=== PATIENT | female | born 1960 | race Caucasian/White ===

== ENCOUNTER → 2018-03-16 10:43 | Outpatient (CLI) | payer OTHER, SELFPAY | PROVIDERS: Family Provider Family Medicine; PCP Family Medicine; Visit Provider Family Medicine | DX: Z00.00 Encounter for general adult medical examination without abnormal findings (principal) ==

== ENCOUNTER → 2018-03-19 08:55 | Outpatient (CLI) | payer OTHER, SELFPAY ==
[2018-03-19 12:38] LABS: AST(SGOT) 16 U/L (15-37); Alanine Aminotransfer ALT/SGPT 17 U/L (13-56); Albumin, Serum 3.6 g/dL (3.2-5.0); Alkaline Phosphatase 89 U/L (45-117); Anion Gap 8 (5-15); BUN 14 mg/dL (7-18); BUN/Creat Ratio 16.3 RATIO (10-20); Calcium,Total 8.2 mg/dL (8.5-10.1); Chloride 109 mmol/L (98-107); Cholesterol 235 mg/dL (200); Creatinine, Serum 0.86 mg/dL (0.55-1.02); EST Glomerular Filtration Rate 73 mL/min (>60); Est Glom Filt Rate - Afr Amer 88 mL/min (>60); Free T3 2.1 pg/mL (2.18-3.98); Globulin 3.6 g/dL (2.2-4.2); Glucose 84 mg/dL (74-106); High Density Lipoprotein 57 mg/dL; Potassium 4.1 mmol/L (3.5-5.1); Protein, Total 7.2 g/dL (6.4-8.2); Sodium Level 141 mmol/L (136-145); T4 Free Direct 0.89 ng/dL (0.76-1.46); Thyroid Stim Hormone (TSH) 2.01 uIU/mL (0.358-3.74); Triglycerides 252 mg/dL; Very Low Density Lipoprotein 50 mg/dL (5-40)
== END ==
PROVIDERS: Family Provider Family Medicine; PCP Family Medicine; Visit Provider Family Medicine
DX: E03.9 Hypothyroidism, unspecified (principal); F32.9 Major depressive disorder, single episode, unspecified
CPT/HCPCS: 36415; 80053; 80061; 84439; 84443; 84481

== ENCOUNTER → 2018-09-28 10:02 | Outpatient (CLI) | payer OTHER, SELFPAY ==
[2018-10-02 13:28] LABS: HPV HC, High Risk Negative (Negative)
== END ==
PROVIDERS: Family Provider Family Medicine; PCP Family Medicine; Visit Provider Family Medicine
DX: Z12.4 Encounter for screening for malignant neoplasm of cervix (principal)
CPT/HCPCS: 87624; 88175; G0145

== ENCOUNTER → 2018-10-13 10:20 | Outpatient (CLI) | payer OTHER, SELFPAY ==
[2016-11-06 10:24] VITALS: BMI 27.8
--- NOTE | 2018-10-13 10:24 | BI_ITS ---
MAMMOGRAPHY - UNILATERAL DIAGNOSTIC: LEFT BREAST REASON FOR EXAM: Female, 57 years old. Prior right mastectomy. Prior left stereotactic breast biopsy. PERTINENT HISTORY: Personal history of breast cancer. Grandmother with breast cancer. On with breast cancer. TECHNIQUE: Digital unilateral breast missy (3D mammographic acquisition) in the CC and MLO projections. 2-D mediolateral oblique (MLO) and craniocaudad (CC) views of both breasts were obtained. CAD: Full Field Digital Mammography with Computer Added Detection was performed. COMPARISON: Comparison is made with prior study dated February 21, 2017 and November 01, 2010. FINDINGS: Breast Composition: The breasts are heterogeneously dense, which may obscure small masses. There are no dominant masses or suspicious calcifications. 2 tissue markers are seen in the retroareolar region of the left breast. These are unchanged. Stable appearance of the small left axillary lymph nodes. No other significant abnormalities are identified. There has been no significant change since the prior study. BI/UNILAT LT SCRN W/CAD IMPRESSION: Stable unilateral diagnostic mammogram. One year follow-up mammogram recommended. (A) ASSESSMENT CATEGORY: BIRADS Category 2: Benign. A letter regarding these results will be sent to the patient by the facility within 30 days. Approximately 10% of breast cancers are not detected by mammography. A normal mammogram should not delay biopsy of a clinically suspicious abnormality. Electronically Signed: Nestor Allison MD at 9:28 EST Tel [phone], Service support ,
== END ==
PROVIDERS: Family Provider Family Medicine; PCP Family Medicine; Referring Provider Family Medicine; Visit Provider Family Medicine
DX: Z12.31 Encounter for screening mammogram for malignant neoplasm of breast (principal); C50.919 Malignant neoplasm of unspecified site of unspecified female breast
CPT/HCPCS: 77061; 77063; 77067; G0279

== ENCOUNTER 2019-05-18 18:41 | Emergency (ER) | payer OTHER, SELFPAY ==
[2019-05-18 18:42] VITALS: BP 117/66; PULSE 70; RESP 16; TEMP 36.7; O2SAT 96; BMI 28.1
--- NOTE | 2019-05-18 19:03 | RAD_ITS ---
STUDY: X-RAY - RIGHT FOOT CLINICAL: Female, 58 years old. Trauma TECHNIQUE: 3 view(s) of the foot. COMPARISON: None. FINDINGS: There is no acute fracture or dislocation. There is mild hallux valgus with moderate degenerative change in the first metatarsal head. Mineralization is normal. There is chronic insertional enthesopathy of the plantar fascia. Soft tissues are intact. RAD/Foot min 3 Views IMPRESSION: 1. No acute findings of trauma. 2. Hallux valgus. Electronically Signed: Vidya Ahumada, at 19:46 EDT Tel , Service support ,
--- NOTE | 2019-05-18 19:03 | RAD_ITS ---
STUDY: X-RAY - RIGHT WRIST REASON FOR EXAM: Female, 58 years old. Trauma TECHNIQUE: 3 view(s) of the wrist were obtained. COMPARISON: None. FINDINGS: Normal visualized distal radius and ulna. Normal radiocarpal articulation. Normal distal radioulnar articulation. Normal carpal bones. Normal carpal articulations. Normal carpometacarpal articulation of the thumb. Normal second through fifth carpometacarpal articulations. Normal visualized metacarpal bones. The soft tissue structures are unremarkable. RAD/Wrist min 3 Views IMPRESSION: Normal x-ray examination of the wrist. Electronically Signed: Vidya Ahumada, at 19:42 EDT Tel , Service support ,
--- NOTE | 2019-05-18 19:11 | ED.VISSUMM ---
- ER Visit Summary Date of Service: 05/18/19 Chief Complaint: Right wrist pain, right foot pain History of Present Illness: The patient is a 58 F who was on a stepladder when it collapsed beneath her and she fell. She states that she twisted her right foot and landed with her right arm outstretched. No head trauma or LOC. She took nothing for it at home. She did apply ice to the wrist and hand. Denies any previous injuries or surgeries to these areas. The pain is worse with movement. Physical Examination: Right wrist exam reveals full range of motion with minimal pain. There is no specific tenderness. No deformity or swelling. No paresthesias. Right foot is tender in the proximal area near the insertion of the ATFL. There is no malleolar tenderness. No calcaneal tenderness. There is no fifth metatarsal tenderness. He does have good range of motion with minimal pain. Minimal swelling also noted after icing. Test Results: X-rays of the wrist and foot are negative Emergency Department Course and Treatment: Patient has negative x-rays. She will be given crutches. She will ice and elevate and use ibuprofen at home. She will follow-up with her PCP Treatment Plan: [] Disposition: Discharge Impression: Right foot sprain, right wrist sprain This note was generated with Doc[employer] dictation software. It may contain incorrect words, spelling, and punctuation that were not noted in review of the chart prior to signing ED Disposition - Plan for ED Patient: Referrals: Kristal Fregoso MD [Primary Care Provider] -
--- NOTE | 2019-05-18 19:57 | ED.DEP ---
ED Disposition - Plan for ED Patient: Disposition: Home or Assisted Living Instructions: Sprain Foot Referrals: Kristal Fregoso MD [Primary Care Provider] -
[2019-05-18 20:26] VITALS: RESP 16
== END 2019-05-18 20:26 | disposition home or self-care (01) ==
LOC: ED 20:14
PROVIDERS: Emergency Provider Emergency Medicine; Family Provider Family Medicine; PCP Family Medicine
DX: S63.501A Unspecified sprain of right wrist, initial encounter (principal); S93.601A Unspecified sprain of right foot, initial encounter; W11.XXXA Fall on and from ladder, initial encounter; Y93.9 Activity, unspecified; Y92.9 Unspecified place or not applicable; Y99.9 Unspecified external cause status; E03.9 Hypothyroidism, unspecified; F32.9 Major depressive disorder, single episode, unspecified; Z79.899 Other long term (current) drug therapy
CPT/HCPCS: 73110; 73630; 99284

== ENCOUNTER → 2019-05-21 08:21 | Outpatient (CLI) | payer OTHER, SELFPAY ==
[2019-05-18 18:42] VITALS: BMI 28.1
[2019-05-21 12:32] LABS: Absolute Lymphocyte Count 1.84 X10^3/ul (0.83-4.51); Absolute Neutrophil Count 2.6 X10^3/uL (2.0-7.7); Basophil# 0.02 X10^3/uL; Basophil% 0.4 % (0-1); Eosinophils% 3.9 % (0-5); Hematocrit 41.8 % (37-47); Hemoglobin 13.7 g/dl (12.0-15.0); Lymphocyte # 1.84 X10^3/ul (4.0); Lymphocyte % 36.2 % (19-41); Mean Corp Hgb Conc 32.8 g/gl (32-36); Mean Corpuscular Hgb 28.2 pg (27.0-32.0); Mean Platelet Vol. 10.1 fl (6.2-12.0); Monocyte# 0.43 X10^3/uL; Monocyte% 8.5 % (0-10); Neutrophil # 2.59 X10^3/uL (2.7-7.7); Platelet Count 308 K/mm3 (150-450); RBC Distribution Width CV 13.2 % (11.6-14.6); RBC Distribution Width SD 40.9 fl (35.1-43.9); Red Blood Count 4.86 M/mm3 (4.2-5.4); White Blood Count 5.1 K/mm3 (4.4-11.0)
[2019-05-21 12:41] LABS: POSITIVE COUNT NO; POSITIVE DIFFERENTIAL NO; POSITIVE MORPHOLOGY NO
[2019-05-21 13:05] LABS: AST(SGOT) 19 U/L (15-37); Alanine Aminotransfer ALT/SGPT 21 U/L (13-56); Albumin, Serum 3.9 g/dL (3.2-5.0); Alkaline Phosphatase 106 U/L (45-117); Anion Gap 6 (5-15); BUN 14 mg/dL (7-18); BUN/Creat Ratio 14.4 RATIO (10-20); Chloride 107 mmol/L (98-107); Creatinine, Serum 0.97 mg/dL (0.55-1.02); EST Glomerular Filtration Rate 63 mL/min (>60); Est Glom Filt Rate - Afr Amer 76 mL/min (>60); Globulin 3.8 g/dL (2.2-4.2); Glucose 84 mg/dL (74-106); Protein, Total 7.7 g/dL (6.4-8.2); Sodium Level 139 mmol/L (136-145); Thyroid Stim Hormone (TSH) 2.52 uIU/mL (0.358-3.74)
[2019-05-21 13:55] LABS: Cholesterol 220 mg/dL (200); High Density Lipoprotein 76 mg/dL; Triglycerides 125 mg/dL; Very Low Density Lipoprotein 25 mg/dL (5-40)
== END ==
PROVIDERS: Family Provider Family Medicine; PCP Family Medicine; Visit Provider Family Medicine
DX: E03.9 Hypothyroidism, unspecified (principal); E78.5 Hyperlipidemia, unspecified; F32.9 Major depressive disorder, single episode, unspecified
CPT/HCPCS: 36415; 80053; 80061; 83690; 84443; 85025

== ENCOUNTER → 2019-09-07 14:30 | Outpatient (CLI) | payer OTHER, SELFPAY ==
[2019-09-07 09:16] VITALS: BMI 28.1
== END ==
PROVIDERS: Family Provider Family Medicine; PCP Family Medicine; Visit Provider Physician Assistant Medical
DX: J02.9 Acute pharyngitis, unspecified (principal)
CPT/HCPCS: 87070

== ENCOUNTER → 2019-10-21 15:56 | Outpatient (CLI) | payer OTHER, SELFPAY ==
[2019-09-21 09:56] VITALS: BMI 28.1
--- NOTE | 2019-10-21 15:58 | BI_ITS ---
MAMMOGRAPHY - UNILATERAL SCREENING: LEFT BREAST REASON FOR EXAM: Female, 58 years old. Routine annual screening examination (unilateral). PERTINENT HISTORY: Right mastectomy in 2005. Left breast biopsies in 2009. History of breast cancer in grandmother. TECHNIQUE: TECHNIQUE: Digital examination. Mediolateral oblique (MLO) and craniocaudad (CC) views of both breasts were obtained. CAD: CAD was performed on this study. COMPARISON: October 13, 2018 FINDINGS: Breast Composition: There are scattered areas of fibroglandular density. 2 tissue clip markers in the left breast unchanged. Stable benign calcifications. There are no dominant masses or suspicious calcifications. No other significant abnormalities are identified. BI/SCREEN MAMM (CAD) W/MIRANDA UNI L IMPRESSION: Stable bilateral screening mammogram. ASSESSMENT CATEGORY: BIRADS Category 2: Benign. A letter regarding these results will be sent to the patient by the facility within 30 days. FOLLOW UP RECOMMENDATION: Yearly follow up mammogram recommended. (A) Approximately 10% of breast cancers are not detected by mammography. A normal mammogram should not delay biopsy of a clinically suspicious abnormality. [id number] Electronically Signed: Panda Eddy MD at 15:02 EST , Service support ,
== END ==
PROVIDERS: Family Provider Family Medicine; PCP Family Medicine; Referring Provider Family Medicine; Visit Provider Family Medicine
DX: Z12.31 Encounter for screening mammogram for malignant neoplasm of breast (principal); C50.919 Malignant neoplasm of unspecified site of unspecified female breast; Z90.11 Acquired absence of right breast and nipple; Z80.3 Family history of malignant neoplasm of breast
CPT/HCPCS: 77063; 77067

== ENCOUNTER → 2020-03-30 14:40 | Outpatient (CLI) | payer OTHER, SELFPAY ==
[2019-09-21 09:56] VITALS: BMI 28.1
[2020-03-30 18:11] LABS: Free T3 2.2 pg/mL (2.18-3.98); T4 Free Direct 1.03 ng/dL (0.76-1.46); Thyroid Stim Hormone (TSH) 1.56 uIU/mL (0.358-3.74)
== END ==
PROVIDERS: PCP Family Medicine; Referring Provider Family Medicine; Visit Provider Family Medicine
DX: E03.9 Hypothyroidism, unspecified (principal)
CPT/HCPCS: 36415; 84439; 84443; 84481

== ENCOUNTER → 2020-06-19 20:28 | Outpatient (CLI) | payer OTHER, SELFPAY ==
[2019-09-21 09:56] VITALS: BMI 28.1
== END ==
PROVIDERS: PCP Family Medicine; Visit Provider Family Medicine
DX: R06.83 Snoring (principal)
CPT/HCPCS: 95810

== ENCOUNTER → 2020-08-10 21:51 | Outpatient (CLI) | payer OTHER, SELFPAY ==
[2019-09-21 09:56] VITALS: BMI 28.1
== END ==
PROVIDERS: PCP Family Medicine; Referring Provider Family Medicine; Visit Provider Family Medicine
DX: G47.33 Obstructive sleep apnea (adult) (pediatric) (principal)
CPT/HCPCS: 95811

== ENCOUNTER → 2020-11-05 16:30 | Outpatient (CLI) | payer OTHER, SELFPAY ==
[2019-09-21 09:56] VITALS: BMI 28.1
== END ==
PROVIDERS: PCP Family Medicine; Referring Provider Family Medicine; Visit Provider Family Medicine
DX: Z03.818 Encounter for observation for suspected exposure to other biological agents ruled out (principal)
CPT/HCPCS: 87635; C9803; U0003

== ENCOUNTER → 2020-11-18 14:10 | Outpatient (CLI) | payer OTHER, SELFPAY ==
[2019-09-21 09:56] VITALS: BMI 28.1
[2020-11-11 11:27] VITALS: BMI 30.5
--- NOTE | 2020-11-18 14:11 | BI_ITS ---
MAMMOGRAPHY - UNILATERAL SCREENING: LEFT BREAST REASON FOR EXAM: Female, 60 years old. Routine annual screening examination (unilateral). PERTINENT HISTORY: Personal history of breast cancer. Grandmother with breast cancer. Prior right mastectomy. TECHNIQUE: Digital unilateral breast miranda (3D mammographic acquisition) in the CC and MLO projections. 2-D mediolateral oblique (MLO) and craniocaudad (CC) views of both breasts were obtained. CAD: Full Field Digital Mammography with Computer Added Detection was performed. COMPARISON: Comparison is made with prior mammogram dated 10/21/2019 and 10/13/2018. FINDINGS: Breast Composition: The breasts are heterogeneously dense, which may obscure small masses. There are no dominant masses or suspicious calcifications. 2 tissue markers are once again seen in the retroareolar region of the left breast. No other significant abnormalities are identified. There has been no significant change since the prior study. BI/SCREEN MAMM (CAD) W/MIRANDA UNI L IMPRESSION: Stable unilateral screening mammogram. Yearly follow-up mammogram recommended. (A) ASSESSMENT CATEGORY: BIRADS Category 2: Benign. A letter regarding these results will be sent to the patient by the facility within 30 days. Approximately 10% of breast cancers are not detected by mammography. A normal mammogram should not delay biopsy of a clinically suspicious abnormality. [id number] Electronically Signed: Nestor Allison, at 15:05 EST , Service support ,
== END ==
PROVIDERS: PCP Family Medicine; Referring Provider Family Medicine; Visit Provider Family Medicine
DX: Z12.31 Encounter for screening mammogram for malignant neoplasm of breast (principal)
CPT/HCPCS: 77063; 77067

== ENCOUNTER → 2020-12-25 07:21 | Outpatient (CLI) | payer OTHER, SELFPAY ==
[2020-11-11 11:27] VITALS: BMI 30.5
[2020-12-25 09:54] LABS: Absolute Lymphocyte Count 1.67 X10^3/uL (0.83-4.51); Absolute Neutrophil Count 2.8 X10^3/uL (2.0-7.7); Basophil# 0.05 X10^3/uL; Eosinophil# 0.15 X10^3/uL; Eosinophils% 2.9 % (0-5); Hematocrit 41.3 % (37-47); Hemoglobin 13.3 g/dL (12.0-15.0); Lymphocyte # 1.67 X10^3/ul (4.0); Lymphocyte % 32.1 % (19-41); Mean Corp Hgb Conc 32.2 g/dL (32-36); Mean Corpuscular Hgb 28.1 pg (27.0-32.0); Mean Corpuscular Volume 87.3 fL (81-99); Mean Platelet Vol. 10.1 fl (6.2-12.0); Monocyte% 9.6 % (0-10); NRBC Flagged by Analyzer 0 % (0-5); Neutrophil # 2.83 X10^3/uL (2.7-7.7); Neutrophil % 54.2 % (47-70); Platelet Count 305 K/mm3 (150-450); RBC Distribution Width CV 12.5 % (11.6-14.6); RBC Distribution Width SD 40.2 fl (35.1-43.9); Red Blood Count 4.73 M/mm3 (4.2-5.4); White Blood Count 5.2 K/mm3 (4.4-11.0)
[2020-12-25 10:26] LABS: ALB/GLOB Ratio 1.2 RATIO (0.9-2.4); AST(SGOT) 10 U/L (15-37); Alanine Aminotransfer ALT/SGPT 19 U/L (13-56); Albumin, Serum 4.1 g/dL (3.2-5.0); Alkaline Phosphatase 87 U/L (45-117); Anion Gap 7 (5-15); BUN 19 mg/dL (7-18); BUN/Creat Ratio 18.3 RATIO (10-20); Calcium,Total 8.9 mg/dL (8.5-10.1); Chloride 109 mmol/L (98-107); Cholesterol 220 mg/dL (200); Creatinine, Serum 1.04 mg/dL (0.55-1.02); EST Glomerular Filtration Rate 58 mL/min (>60); Est Glom Filt Rate - Afr Amer 70 mL/min (>60); Globulin 3.5 g/dL (2.2-4.2); Glucose 96 mg/dL (74-106); High Density Lipoprotein 77 mg/dL; Potassium 3.9 mmol/L (3.5-5.1); Protein, Total 7.6 g/dL (6.4-8.2); Sodium Level 140 mmol/L (136-145); Triglycerides 102 mg/dL; Very Low Density Lipoprotein 20 mg/dL (5-40)
[2020-12-25 10:28] LABS: Vitamin D,25 Hydroxy 35.9 ng/mL
== END ==
PROVIDERS: PCP Family Medicine; Referring Provider Family Medicine; Visit Provider Family Medicine
DX: E78.5 Hyperlipidemia, unspecified (principal); E03.9 Hypothyroidism, unspecified; F32.9 Major depressive disorder, single episode, unspecified; M85.80 Other specified disorders of bone density and structure, unspecified site
CPT/HCPCS: 36415; 80053; 80061; 82306; 85025

== ENCOUNTER → 2021-01-28 15:41 | Outpatient (CLI) | payer OTHER, SELFPAY ==
[2020-11-11 11:27] VITALS: BMI 30.5
--- NOTE | 2021-01-28 15:55 | BD_ITS ---
STUDY: DUAL ENERGY X-RAY ABSORPTIOMETRY / DXA REASON FOR EXAM: Female, 60 years old. [id number] the patient is postmenopausal. Loss of height. TECHNIQUE: Bone Mineral Density (BMD) measurements of lumbar spine and bilateral hips were obtained. COMPARISON: None. FINDINGS: Lumbar Spine (L1-L4): g/cm2 (1.083) / T-score (-1.0) / Z-score (0.2) Findings are suggestive of normal bone density with a low fracture risk. Left Femur Total: g/cm2 (1.015) / T-score (0.1) / Z-score (0.9) Left Femoral Neck: g/cm2 (0.944) / T-score (-0.7) / Z-score (0.5) Right Femur Total: g/cm2 (1.016) / T-score (0.1) / Z-score (0.9) Right Femoral Neck: g/cm2 (0.962) / T-score (-0.5) / Z-score (0.7) BD/Dexa Bone Density Study IMPRESSION: The patient is considered normal as outlined below according to World Frantz Organization (WHO) criteria with a low fracture risk. Reference Information: The T-score is the number of standard deviations above or below the standard which is normal for young adults at their peak bone mineral density. The World Health Organization (WHO) interprets the T-scores as follows: Above -1 Normal bone density Between -1 and -2.5 Osteopenia Equal to / or below -2.5 Osteoporosis As a practical clinical guideline, osteopenia may be graded as follows: Mild -1 through -1.5 Moderate -1.6 through -2.0 Severe -2.1 through -2.4 The Z-score is the number of standard deviations above or below age-matched controls. A Z-score of less than -1.5 would be considered abnormal. References: 1. NIH Osteoporosis and Related Bone Diseases www osteo.org 2. International Society for Clinical Densitometry www iscd.org 3. National Osteoporosis Foundation www nof.org Electronically Signed: Nestor Allison MD at 9:34 EST , Service support ,
== END ==
PROVIDERS: PCP Family Medicine; Referring Provider Family Medicine; Visit Provider Family Medicine
DX: Z13.820 Encounter for screening for osteoporosis (principal); M85.80 Other specified disorders of bone density and structure, unspecified site; Z78.0 Asymptomatic menopausal state
CPT/HCPCS: 77080

== ENCOUNTER → 2021-04-28 14:30 | Outpatient (CLI) | payer OTHER, SELFPAY ==
[2021-03-20 12:49] VITALS: BMI 28.9
[2021-04-28 18:12] LABS: Anion Gap 7 (5-15); BUN 19 mg/dL (7-18); BUN/Creat Ratio 19.4 RATIO (10-20); Calcium,Total 9.1 mg/dL (8.5-10.1); Chloride 106 mmol/L (98-107); Creatinine, Serum 0.98 mg/dL (0.55-1.02); EST Glomerular Filtration Rate 62 mL/min (>60); Est Glom Filt Rate - Afr Amer 75 mL/min (>60); Glucose 105 mg/dL (74-106); Potassium 3.6 mmol/L (3.5-5.1); Sodium Level 140 mmol/L (136-145); Thyroid Stim Hormone (TSH) 1.62 uIU/mL (0.358-3.74)
== END ==
PROVIDERS: PCP Family Medicine; Referring Provider Family Medicine; Visit Provider Family Medicine
DX: E03.9 Hypothyroidism, unspecified (principal); Z51.81 Encounter for therapeutic drug level monitoring
CPT/HCPCS: 36415; 80048; 84443

== ENCOUNTER → 2021-11-23 08:27 | Outpatient (CLI) | payer OTHER, SELFPAY ==
[2021-11-23 09:50] LABS: Absolute Lymphocyte Count 1.82 X10^3/uL (0.83-4.51); Absolute Neutrophil Count 3.1 X10^3/uL (2.0-7.7); Basophil# 0.04 X10^3/uL; Basophil% 0.7 % (0-1); Eosinophil# 0.16 X10^3/uL; Eosinophils% 2.8 % (0-5); Hemoglobin 13.6 g/dL (12.0-15.0); Lymphocyte # 1.82 X10^3/ul (0.83-4.51); Lymphocyte % 31.8 % (19-41); Mean Corp Hgb Conc 32.4 g/dL (32-36); Mean Corpuscular Hgb 27.9 pg (27.0-32.0); Mean Corpuscular Volume 86.1 fL (81-99); Mean Platelet Vol. 9.6 fl (6.2-12.0); Monocyte# 0.56 X10^3/uL; Monocyte% 9.8 % (0-10); NRBC Flagged by Analyzer 0 % (0-5); Neutrophil # 3.14 X10^3/uL (2.7-7.7); Neutrophil % 54.7 % (47-70); Platelet Count 302 K/mm3 (150-450); RBC Distribution Width CV 12.7 % (11.6-14.6); Red Blood Count 4.88 M/mm3 (4.2-5.4); White Blood Count 5.7 K/mm3 (4.4-11.0)
[2021-11-23 10:10] LABS: AST(SGOT) 16 U/L (15-37); Alanine Aminotransfer ALT/SGPT 19 U/L (13-56); Albumin, Serum 3.8 g/dL (3.2-5.0); Alkaline Phosphatase 93 U/L (45-117); Anion Gap 8 (5-15); BUN 14 mg/dL (7-18); BUN/Creat Ratio 14.8 RATIO (10-20); Calcium,Total 8.9 mg/dL (8.5-10.1); Chloride 105 mmol/L (98-107); Cholesterol 211 mg/dL (200); Creatinine, Serum 0.95 mg/dL (0.55-1.02); EST Glomerular Filtration Rate 64 mL/min (>60); Est Glom Filt Rate - Afr Amer 78 mL/min (>60); Globulin 3.9 g/dL (2.2-4.2); Glucose 98 mg/dL (74-106); High Density Lipoprotein 64 mg/dL; Potassium 3.9 mmol/L (3.5-5.1); Protein, Total 7.7 g/dL (6.4-8.2); Sodium Level 139 mmol/L (136-145); Thyroid Stim Hormone (TSH) 3.13 uIU/mL (0.358-3.74); Triglycerides 167 mg/dL; Very Low Density Lipoprotein 33 mg/dL (5-40)
== END ==
PROVIDERS: PCP Family Medicine; Referring Provider Family Medicine; Visit Provider Family Medicine
DX: Z00.00 Encounter for general adult medical examination without abnormal findings (principal); C50.919 Malignant neoplasm of unspecified site of unspecified female breast; E03.9 Hypothyroidism, unspecified
CPT/HCPCS: 36415; 80053; 80061; 84443; 85025

== ENCOUNTER 2021-11-29 15:45 | Outpatient (CLI) | payer OTHER, SELFPAY ==
--- NOTE | 2021-11-29 15:48 | BI_ITS ---
MAMMOGRAPHY - UNILATERAL SCREENING: LEFT BREAST REASON FOR EXAM: Female, 61 years old. Routine annual screening examination (unilateral). PERTINENT HISTORY: Personal history of breast cancer. Prior right mastectomy. Grandmothers with breast cancer. TECHNIQUE: Digital unilateral breast miranda (3D mammographic acquisition) in the CC and MLO projections. 2-D mediolateral oblique (MLO) and craniocaudad (CC) views of both breasts were obtained. CAD: Full Field Digital Mammography with Computer Added Detection was performed. COMPARISON: Comparison is made with prior study dated 08/19/2020 and 10/21/2019. FINDINGS: Breast Composition: The breasts are heterogeneously dense, which may obscure small masses. There are no dominant masses or suspicious calcifications. Once again, 2 tissue clip markers are seen in the retroareolar region of the No other significant abnormalities are identified. There has been no significant change since the prior study. BI/SCREEN MAMM (CAD) W/MIRANDA UNI L IMPRESSION: Stable unilateral screening mammogram. Yearly follow-up mammogram recommended. (A) ASSESSMENT CATEGORY: BIRADS Category 2: Benign. A letter regarding these results will be sent to the patient by the facility within 30 days. Approximately 10% of breast cancers are not detected by mammography. A normal mammogram should not delay biopsy of a clinically suspicious abnormality. [id number] Electronically Signed: Nestor Allison MD at 8:05 EST , Service support ,
== END 2021-11-29 23:59 | disposition short-term general hospital (02) ==
LOC: OPBI 15:46
PROVIDERS: PCP Family Medicine; Referring Provider Family Medicine; Visit Provider Family Medicine
DX: Z12.31 Encounter for screening mammogram for malignant neoplasm of breast (principal)
CPT/HCPCS: 77063; 77067

== ENCOUNTER 2021-12-22 14:31 | Outpatient (CLI) | payer OTHER, SELFPAY ==
--- NOTE | 2021-12-22 14:36 | RAD_ITS ---
EXAM: XR CHEST, 2 VIEWS CLINICAL INDICATION: CHEST PAIN WITH INSPIRATION TECHNIQUE: Frontal and lateral views of the chest. This report was created using [employer] report generation technology. COMPARISON: 11/06/2016. FINDINGS: LUNGS AND PLEURAL SPACES: Unremarkable. No consolidation or edema. No pneumothorax. No effusion. HEART: Unremarkable. Cardiac silhouette not enlarged. MEDIASTINUM: Central airways and mediastinal contour are unremarkable. BONES/JOINTS: Unremarkable. SOFT TISSUES: Postsurgical absence of the right breast. Surgical clips in the right axilla. RAD/Chest PA and Lateral IMPRESSION: No acute findings in the chest and no interval change when compared to 11/06/2016. Electronically Signed: Marvel Oliveira MD at 15:30 EST ,
== END 2021-12-22 23:59 | disposition short-term general hospital (02) ==
LOC: MTRAD 14:32
PROVIDERS: PCP Family Medicine; Referring Provider Family Medicine; Visit Provider Family Medicine
DX: R07.9 Chest pain, unspecified (principal)
CPT/HCPCS: 71046

== ENCOUNTER 2022-01-05 12:42 | Outpatient (CLI) | payer OTHER, SELFPAY ==
--- NOTE | 2022-01-05 12:49 | STE_ITS ---
Reason For Study: Chest Pain; Palpitations Stress Results Protocol: Nabor Protocol Maximum Predicted HR: 160 bpm Target HR: 136 bpm % Maximum Predicted HR: 86 % DurationHeart Rate Stage (mm:ss) (bpm) BP Comment Baseline 51 116/74No Chest Pain Nabor Protocol Stage I 3:00 88 122/68Mild Chest Pain; Lightheaded Nabor Protocol Stage II 3:00 98 130/66Mild Left Sided Chest Pain Nabor Protocol Stage III 3:00 126 136/68Mild Left Sided Chest Pain; Mild Dyspnea Nabor Protocol Stage IV 0:30 137 / Mild Chest Pain; Lightheaded Recovery 71 118/68No Chest Pain; No Lightheadedness Stress Duration: 9:30 mm:ss Maximum Stress HR: 137 bpm METS: 11 Baseline Echocardiogram Findings Stress Echo Wall motion Data Resting WM Intermediate WM Stress WM ECHO/Stress Test Echo w/o Contrast Interpretation Summary Exercise stress echo. 61-year-old lady with a history of chest pain. Stress protocol: Resting KG demonstrates normal sinus rhythm rhythm with a rate of 57 bpm normal intervals are noted resting blood pressure is 116/74 mmHg. The patient exercised according to [facility] Nabor protocol for total duration of 9 minutes and 30 seconds completing 30 seconds into stage IV of the Nabor protocol. The maximum heart rate attained was 139 bpm which was 86% of max impa ct at heart rate the maximum workload was 11.9 metabolic equivalents. At rest nonspecific ST changes were noted with did not meet the criteria for ischemia at peak exercise upsloping ST depression of approximately 1 mm was noted with did not meet the criteria for ischemia. The patient did experien ce mild chest discomfort from beginning through the test of questionable significance. The ak blood pressure was 156/70 mmHg. Good blood pressure response to exercise was noted. Stress echocardiogram. The resting echocardiographic evaluation demonstrated no rmal left ventricular chamber size with an estimated ejection fraction of 55%. At peak exercise there was thickening of all ceron and reduction of left ventricular cavity size peaking of ejection fra ction approximately 70%. No new wall motion abnormalities were noted to suggest ischemia. Conclusion: Exercise stress test with no EKG criteria for ischemia at a high workload. Excellent functional capacity. Normal rest and stress echocardiographic images. Chest pain of uncertain significance in etiology. Ordering Physician: Kristal Fregoso Referring Physician: Uri Mane Performed By: Anna Castro, EDU, RVT
--- NOTE | 2022-01-05 18:33 | STRESSREP_ITS ---
Stress Test Report Exercise stress test. 62-year-old lady with a history of chest pain pain Medications metoprolol gabapentin. Stress protocol: Resting EKG demonstrates normal sinus rhythm with a rate of 71 bpm normal intervals are noted resting blood pressure is 120/84 mmHg. The patient exercised according to regular Nabor protocol for total duration of 2 minutes and 50 seconds. The maximum heart rate attained was 108 bpm which was 67% of max impact at heart rate maximum workload was 4.6 metabolic equivalents. At rest there were no ST or T wave changes noted to suggest ischemia and at peak exercise nonspecific ST changes were noted which did not meet the criteria for ischemia. The peak blood pressure was 144/82 mmHg. The patient apparently coul d not keep up with the treadmill speed. Conclusion Stress test with no EKG criteria for ischemia at a low workload. The low workload attained may affect sensitivity for detection of ischemia.
== END 2022-01-05 23:59 | disposition home or self-care (01) ==
LOC: CVS 12:46
PROVIDERS: PCP Family Medicine; Referring Provider Family Medicine; Visit Provider Family Medicine
DX: R07.9 Chest pain, unspecified (principal)
CPT/HCPCS: 93017; 93350

== ENCOUNTER 2022-03-15 12:45 | Outpatient (CLI) | payer OTHER, SELFPAY ==
[2022-03-15 15:38] LABS: Thyroid Stim Hormone (TSH) 1.01 uIU/mL (0.358-3.74)
== END 2022-03-15 23:59 | disposition home or self-care (01) ==
LOC: MTLAB 12:48
PROVIDERS: PCP Family Medicine; Referring Provider Family Medicine; Visit Provider Family Medicine
DX: E03.9 Hypothyroidism, unspecified (principal)
CPT/HCPCS: 36415; 84443

== ENCOUNTER 2022-04-11 06:48 | Day surgery (SDC) | payer OTHER, SELFPAY ==
[2022-04-11] MEDS: Lactated Ringers 1,000 ML 15 ML IV (07:15)
[2022-04-11 07:23] VITALS: BP 118/75; PULSE 61; RESP 17; TEMP 36.9; O2SAT 97; BMI 29.2
--- NOTE | 2022-04-11 07:31 | H&P.OPEN ---
HPI - General HPI Narrative KARINA ARREGUIN, is a 61 F who presents for diagnostic colonoscopy due to bright red blood per rectum. Patient states since her office visit she has had an episode of bright red blood per rectum that was on the stool. Patient denies any chronic abdominal pain/nausea/vomiting/reflux since appointment. Office visit 03/10/22 HPI: KARINA ARREGUIN, is a 61 F who presents to the office today for her colonoscopy. Patient states she has had some rectal bleeding since November. Patient will have bright red blood on the stool or on the toilet paper a moderate amount per patient when she does have it. Patient denies any rectal pain with bowel movements. She states she does have external hemorrhoids but has not had them flareup for a while and that does not coincide with the bleeding. Patient states she has bowel movements daily that are soft and formed. Patient states in 2016 she had a colonoscopy which was negative no polyps recommend follow-up in 10 years. Patient's father did have colon cancer twice once when he was 75 and another time when he was 85. Patient's maternal second cousin also diagnosed with colon cancer in his/her 40s. Patient denies any chronic abdominal pain/nausea/vomiting/reflux. Patient did get her COVID booster unsure of the exact date. [facility] Medical History Anxiety Arthritis Asthma BiPAP (biphasic positive airway pressure) dependence Breast cancer Cancer Depression Easy bruising History of pain when walking History of stress test Hypothyroid Non-smoker Palpitations Seasonal allergies Wears glasses Home Medications levothyroxine 88 mcg PO DAILY 11/06/16 [History Last Taken 04/11/22] sertraline 75 mg PO DAILY 11/06/16 [History Last Taken 05/18/19] calcium carbonate 600 mg calcium (1,500 mg) tablet 600 mg PO DAILY 03/10/22 [History Last Taken Unknown] cholecalciferol (vitamin D3) 10 mcg (400 unit) capsule 10 mcg PO DAILY 03/10/22 [History Last Taken Unknown] loratadine 10 mg chewable tablet 10 mg PO DAILY 03/10/22 [History Last Taken Unknown] lorazepam 0.5 mg tablet 0.5 mg PO DAILY PRN 03/10/22 [History Last Taken Unknown] omega-3 fatty acids 1,000 mg capsule 1,000 mg PO DAILY 03/10/22 [History Last Taken Unknown] Sterols 1 cap PO/SL DAILY 04/08/22 [History Last Taken Unknown] flaxseed oil 1,000 mg PO DAILY 04/08/22 [History Last Taken Unknown] lutein 20 mg PO DAILY 04/08/22 [History Last Taken Unknown] multivitamin 1 cap PO DAILY 04/08/22 [History Last Taken Unknown] Allergy/AdvReac Type Severity Reaction Status Date / Time Penicillins Allergy Unknown Verified 04/11/22 07:10 Family History Father Asthma Colon cancer Mother Cancer Surgical History Hx of colonoscopy Hx of wisdom tooth extraction S/P right mastectomy S/P tonsillectomy Social History Smoking Status: Never smoker alcohol intake: current Past Medical/Surgical History Planned Operation Planned Operative Procedure/s: CSCOPE Previous Hospitalizations/Surgeries HX Hospitalizations: No Any Problems With Anesthesia: No You/Your Family Experience Fever (Hyperthermia) With Anes: No Cholinesterase deficiency: No Cardiovascular Hx of Irregular Heartbeat and/or Afib: No Hx Heart Attack: No Hx Congestive Heart Failure: No Hx Hypertension: No Hx Pacemaker: No Respiratory Hx Chronic Obstructive Pulmonary Disease (COPD): No Hx Asthma: No Hx Emphysema: No Hx Sleep Apnea: Yes CPAP: No BIPAP: Yes Hx Respiratory Tract Infection/Cold (presently): No Result (for STOP score): Positive Smoking Status: Never smoker Gastrointestinal Hx Gastroesophageal Reflux: No Hx Ulcer: No Neurological Hx Seizures: No Hx Head/Neck Injury: No Hx Headaches: No Hx Back Injury/Pain: No Does patient have nerve stimulator: No Reproduction : No Miscellaneous Hx Cancer: Yes (breast right) Recent Exposure to Contagious Disease: No Allergies Penicillins Allergy (Verified 04/11/22 07:10) Unknown Discharge Is Pt Admitted From a Retirement, or a Care Home: No After D/C, Where Do you Plan to Go: Return Home Vital Signs Vital Signs Vital Signs: 04/11/22 07:23 Temperature 98.4 F Temperature Source Temporal Pulse Rate 61 Respiratory Rate 17 Respiratory Pattern Normal Blood Pressure 118/75 Blood Pressure Mean 89 Blood Pressure Source Monitor Blood Pressure Position Supine Blood Pressure Location Right Arm Pulse Ox 97 Oxygen Delivery Method Room Air Weight Weight: 192 lb 0.362 oz Body Mass Index (BMI) 29.2 Physical Exam Const alert, oriented x3 and no apparent distress HEENT normocephalic and head/scalp atraumatic Resp normal respiratory effort Cardio regular rate GI soft to palpation and non-tender; Negative for non-distended Palpation: Negative for guarding Extremity no clubbing, cyanosis or edema Neuro CN's II-XII intact bilaterally Psych mental status grossly normal Assessment & Plan Assessment/Plan (1) BRBPR (bright red blood per rectum): Procedure Criteria Type of Procedure Procedure Type: Elective Elective Risks - COVID COVID Risk Discussion: The surgeon/proceduralist and patient have discussed in detail the risk of exposure to and/or potential harm posed by the COVID-19 virus with having a surgery/procedure at this time versus the risk of delaying the surgery/procedure. It is not possible to know either the risk of delaying the surgery or procedure or chance of getting an infection with perfect accuracy, but a joint decision was made between the patient and the surgeon/proceduralist to proceed at this time with the scheduled surgery/procedure as indicated on the consent form. Surgery Risks - Colonoscopy Risks Include but are not Limited To: Risks include but are not limited to: Bleeding, perforation requiring further surgery, inability to complete colonoscopy requiring barium enema.
[2022-04-11 08:55] VITALS: BP 118/75; BP 122/74; PULSE 71; RESP 16; TEMP 36.5; O2SAT 97
--- NOTE | 2022-04-11 08:57 | OP.CCLET_ITS ---
04/11/2022 Kristal Fregoso [place] [id number] [address] Re : Colonoscopy procedure for Joie Minaya Dear Dr. Fregoso This procedure was performed on Monday, April 11, 2022. My impressions and recommendations are as follows: Impressions : - Hemorrhoids found on perianal exam. - External and internal hemorrhoids. - The examination was otherwise normal. - No specimens collected. Recommendations : - Discharge patient to home. - Resume previous diet. - Continue present medications. - Repeat colonoscopy in 10 years for screening purposes. My findings are described in the full procedure note, which is enclosed. If I can be of further assistance, please feel free to contact me at Doctor phone number(s): , Work: . Sincerely, MD Lula Monroe MD 04/11/2022 8:56:29 AM This report has been signed electronically.
--- NOTE | 2022-04-11 08:57 | OP.COLON_ITS ---
Patient Name: Joie Minaya Procedure Date: 04/11/2022 8:08 AM Date of : 1960 Age: 61 Procedure: Colonoscopy Indications: Rectal bleeding Providers: Lula Chan MD Referring MD: Kristal Fregoso Medicines: Monitored Anesthesia Care Patient Profile: This is a 61 year old female. Last Colonoscopy: 2015. Complications: No immediate complications. Procedure: Pre-Anesthesia Assessment: - Prior to the procedure, a History and Physical was performed, and patient medications and allergies were reviewed. The patient's tolerance of previous anesthesia was also reviewed. The risks and benefits of the procedure and the sedation options and risks were discussed with the patient. All questions were answered, and informed consent was obtained. Prior Anticoagulants: The patient has taken no previous anticoagulant or antiplatelet agents. ASA Grade Assessment: Per anesthesia. After reviewing the risks and benefits, the patient was deemed in satisfactory condition to undergo the procedure. After I obtained informed consent, the scope was passed under direct vision. Throughout the procedure, the patient's blood pressure, pulse, and oxygen saturations were monitored continuously. The pediatric colonoscope was introduced through the anus and advanced to the cecum, identified by the ileocecal valve. The colonoscopy was technically difficult and complex due to significant looping. Successful completion of the procedure was aided by applying abdominal pressure. The patient tolerated the procedure well. The quality of the bowel preparation was good. Scope In: 8:18:07 AM Scope Withdrawal Time 0 hours 11 minutes 58 seconds Scope Out: 8:52:59 AM Total Procedure Duration Time 0 hours 34 minutes 52 seconds Findings: Hemorrhoids were found on perianal exam. External and internal hemorrhoids were found. The hemorrhoids were small and Grade I (internal hemorrhoids that do not prolapse). The exam was otherwise without abnormality. Impression: - Hemorrhoids found on perianal exam. - External and internal hemorrhoids. - The examination was otherwise normal. - No specimens collected. Recommendation: - Discharge patient to home. - Resume previous diet. - Continue present medications. - Repeat colonoscopy in 10 years for screening purposes. Procedure Code(s): --- Professional --- 92954, PT, Colonoscopy, flexible; diagnostic, including collection of specimen(s) by brushing or washing, when performed (separate procedure) Diagnosis Code(s): --- Professional --- K64.0, First degree hemorrhoids K62.5, Hemorrhage of anus and rectum CPT copyright 2017 [employer]. All rights reserved. The codes documented in this report are preliminary and upon script coordinator review may be revised to meet current compliance requirements. MD Lula Monroe MD 04/11/2022 8:56:29 AM This report has been signed electronically. Number of Addenda: 0 Note Initiated On: 04/11/2022 8:08 AM
[2022-04-11 09:00] VITALS: BP 100/59; BP 118/75; RESP 67; O2SAT 93
[2022-04-11 09:05] VITALS: BP 115/76; BP 118/75; PULSE 68; RESP 16; O2SAT 100
[2022-04-11 09:11] VITALS: BP 118/75; BP 132/70; PULSE 60; RESP 16; TEMP 36.6; O2SAT 96
[2022-04-11 09:19] VITALS: BP 118/75
== END 2022-04-11 09:40 | disposition home or self-care (01) ==
LOC: EN 06:53 → AC 06:54
PROVIDERS: PCP Family Medicine; Referring Provider Family Medicine; Visit Provider Surgery
PROC: 0DJD8ZZ Inspection of Lower Intestinal Tract, Via Natural or Artificial Opening Endoscopic (ICD-10-PCS; CPT 45378; principal; 2022-04-11 08:10)
DX: K62.5 Hemorrhage of anus and rectum (principal); K64.0 First degree hemorrhoids; K64.4 Residual hemorrhoidal skin tags; E03.9 Hypothyroidism, unspecified; M19.90 Unspecified osteoarthritis, unspecified site; F41.9 Anxiety disorder, unspecified; Z79.890 Hormone replacement therapy; Z79.899 Other long term (current) drug therapy; Z85.3 Personal history of malignant neoplasm of breast; Z80.0 Family history of malignant neoplasm of digestive organs
CPT/HCPCS: 45378; J7120; J2405

== ENCOUNTER → 2022-10-28 | Outpatient (CLI) | payer OTHER, SELFPAY | END | disposition home or self-care (01) | LOC: SL 20:26 | PROVIDERS: PCP Family Medicine; Visit Provider Family Medicine | DX: G47.30 Sleep apnea, unspecified (principal) | CPT/HCPCS: 95811 ==

== ENCOUNTER → 2022-11-15 | Outpatient (CLI) | payer OTHER, SELFPAY | END | disposition home or self-care (01) | LOC: SL 10:17 | PROVIDERS: PCP Family Medicine; Visit Provider Family Medicine | DX: Z00.00 Encounter for general adult medical examination without abnormal findings (principal) ==

== ENCOUNTER → 2022-12-14 | Outpatient (CLI) | payer OTHER, SELFPAY ==
--- NOTE | 2022-12-14 15:37 | BI_ITS ---
MAMMOGRAPHY - UNILATERAL SCREENING: LEFT BREAST REASON FOR EXAM: Female, 62 years old. Routine annual screening examination (unilateral). PERTINENT HISTORY: Personal history of breast cancer. Prior right mastectomy. Left breast stereotactic breast biopsy. Grandmothers with breast cancer. TECHNIQUE: Digital unilateral breast miranda (3D mammographic acquisition) in the CC and MLO projections. 2-D mediolateral oblique (MLO) and craniocaudad (CC) views of both breasts were obtained. CAD: Full Field Digital Mammography with Computer Added Detection was performed. COMPARISON: Comparison is made with prior study dated 11/29/2021 and 11/18/2020. FINDINGS: Breast Composition: The breasts are heterogeneously dense, which may obscure small masses. There are no dominant masses or suspicious calcifications. 2 tissue markers are seen in the retroareolar region of the left breast. Stable 1.1 cm nodular density in the retroareolar region of the left breast. No other significant abnormalities are identified. There has been no significant change since the prior study. BI/SCREEN MAMM (CAD) W/MIRANDA UNI L IMPRESSION: Stable unilateral screening mammogram. Yearly follow-up mammogram recommended. (A) ASSESSMENT CATEGORY: BIRADS Category 2: Benign. A letter regarding these results will be sent to the patient by the facility within 30 days. Approximately 10% of breast cancers are not detected by mammography. A normal mammogram should not delay biopsy of a clinically suspicious abnormality. [id number] Electronically Signed: Nestor Allison MD at 8:22 EST ,
== END | disposition home or self-care (01) ==
LOC: OPBI 15:35
PROVIDERS: PCP Family Medicine; Referring Provider Family Medicine; Visit Provider Family Medicine
DX: Z12.31 Encounter for screening mammogram for malignant neoplasm of breast (principal); Z85.3 Personal history of malignant neoplasm of breast; Z90.11 Acquired absence of right breast and nipple
CPT/HCPCS: 77063; 77067

== ENCOUNTER → 2023-01-03 | Outpatient (CLI) | payer OTHER, SELFPAY ==
[2023-01-03 10:04] LABS: Absolute Lymphocyte Count 2.29 X10^3/uL (0.83-4.51); Absolute Neutrophil Count 2.8 X10^3/uL (2.0-7.7); Basophil# 0.04 X10^3/uL; Basophil% 0.7 % (0-1); Eosinophil# 0.25 X10^3/uL; Eosinophils% 4.1 % (0-5); Hematocrit 42.6 % (37-47); Hemoglobin 13.7 g/dL (12.0-15.0); Lymphocyte # 2.29 X10^3/ul (0.83-4.51); Lymphocyte % 37.7 % (19-41); Mean Corp Hgb Conc 32.2 g/dL (32-36); Mean Corpuscular Hgb 28.2 pg (27.0-32.0); Mean Corpuscular Volume 87.8 fL (81-99); Mean Platelet Vol. 9.8 fl (6.2-12.0); Monocyte# 0.65 X10^3/uL; Monocyte% 10.7 % (0-10); NRBC Flagged by Analyzer 0 % (0-5); Neutrophil # 2.83 X10^3/uL (2.7-7.7); Neutrophil % 46.5 % (47-70); Platelet Count 320 K/mm3 (150-450); RBC Distribution Width CV 12.8 % (11.6-14.6); RBC Distribution Width SD 40.9 fl (35.1-43.9); Red Blood Count 4.85 M/mm3 (4.2-5.4); White Blood Count 6.1 K/mm3 (4.4-11.0)
[2023-01-03 11:08] LABS: ALB/GLOB Ratio 1.1 RATIO (0.9-2.4); AST(SGOT) 19 U/L (15-37); Alanine Aminotransfer ALT/SGPT 19 U/L (13-56); Albumin, Serum 4.1 g/dL (3.2-5.0); Alkaline Phosphatase 91 U/L (45-117); Anion Gap 8 (5-15); BUN 21 mg/dL (7-18); BUN/Creat Ratio 20.8 RATIO (10-20); Calcium,Total 9.2 mg/dL (8.5-10.1); Chloride 108 mmol/L (98-107); Cholesterol 223 mg/dL (200); Creatinine, Serum 1.01 mg/dL (0.55-1.02); EST Glomerular Filtration Rate 59 mL/min (>60); Est Glom Filt Rate - Afr Amer 72 mL/min (>60); Globulin 3.7 g/dL (2.2-4.2); Glucose 99 mg/dL (74-106); High Density Lipoprotein 72 mg/dL; Potassium 4.1 mmol/L (3.5-5.1); Protein, Total 7.8 g/dL (6.4-8.2); Sodium Level 141 mmol/L (136-145); Triglycerides 116 mg/dL; Very Low Density Lipoprotein 23 mg/dL (5-40)
== END | disposition home or self-care (01) ==
LOC: MTLAB 07:44
PROVIDERS: PCP Family Medicine; Referring Provider Family Medicine; Visit Provider Family Medicine
DX: Z00.00 Encounter for general adult medical examination without abnormal findings (principal); C50.919 Malignant neoplasm of unspecified site of unspecified female breast; E03.9 Hypothyroidism, unspecified
CPT/HCPCS: 36415; 80053; 80061; 84443; 85025

== ENCOUNTER → 2023-03-16 | Outpatient (CLI) | payer OTHER, SELFPAY ==
[2023-03-16 18:06] LABS: T4 Free Direct 1.14 ng/dL (0.76-1.46); Thyroid Stim Hormone (TSH) 1.25 uIU/mL (0.358-3.74)
== END | disposition home or self-care (01) ==
LOC: BFHLAB 14:17
PROVIDERS: PCP Family Medicine; Referring Provider Family Medicine; Visit Provider Family Medicine
DX: E03.9 Hypothyroidism, unspecified (principal)
CPT/HCPCS: 36415; 84439; 84443

== ENCOUNTER 2023-03-22 16:30 | Outpatient (RCR) | payer OTHER, SELFPAY ==
--- NOTE | 2023-01-27 11:18 | HP.OTEVAL_ITS ---
Patient's Visit Information KARINA ARREGUIN is a 62 year old F, referred to Occupational Therapy by Dr. Kristal Fregoso MD, with a diagnosis of left lateral epi.. Date of Evaluation: 01/27/23 Occupational Therapist: Valerie Hernandez, OTR/Lucrecia, CHT - Subjective This 62 year old female was seen for OT eval with dx of left lateral Epic ondylitis. Pt states symptoms started about three months ago. pt is is left handed and ( competitively bowled for 20 years). Pt states she typically works out at [employer]. pt states she has had issues a few other times throughout the years but it only lasted a few days. 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 pt states she has a good set-up at work. pt would like to return to working out at [employer]. - Pain left elbow 1 Pain Intensity Range: 6, 7 - ROM Elbow: right -10/140 left 0/145 Forearm: right/left WNL no pain with resistance - Strength Medical Affairs Leader: right 50# left 25# (pain with resistive pattern stamper) Lateral Pinch: right 12# left 8# Tripod Pinch: right 6# left 2# ( pain with resistive pinch) Strength Comments: right pattern stamper strength elbow straight 50# left 30# - Sensation Sensation Comments: denies - Special Tests Lat Epiconylitis - as named: left positive - Quick DASH-Disab of Arm,Shoulder& Hand Quick DASH Score: 20.0000 - Goals Goal:100% adherence to protocol: Yes Comment: lateral epi precautions/ guidelines Goal:ROM equal to unaffected hand: Yes Goal:Medical Affairs Leader/Pinch strength at least 75% of unaffected hand: Yes Goal:No pain with affected hand use: Yes Goal:Full use of affected hand in daily activities including: Yes - Rehabilitation General Assessment: pt demo with symptoms of left lateral epicondylitis. Pts pain is limiting her with ADls and IADLS. Pt would benefit from skilled OT services 2x week for 3-4 weeks to decrease pain, ed. on dx, and return pts strength for ADLs and IADls. Today therapist ed. pt on latera eip precautions, brace for wrist and counterforce brace use- along with treatment POC. pt demo understanding and agree to POC. Rehabilitation Potential: Good - Anticipated Interventions A/AAROM/PROM, Strengthening, Triggerpoint Release, Modalities, Orthoses, Joint Protection/Energy Conservation, Ergonomic Education, Education re assistive Equipment, Education re Diagnosis, Home Program - Visit Plan Frequency: 2x /Week Duration: 4 Weeks TEXT: Thank you for the opportunity to evaluate your patient. For Medicare and Medicare HMO plans, please review the plan of care and approve it. It will need to be FAXED BACK to us at [phone] for Medicare purposes. Please let me know if there are questions or concerns regarding this plan of care. Physician Signature: Date:
--- NOTE | 2023-03-22 17:02 | HP.OTDCSUM_ITS ---
It has been my pleasure to treat KARINA ARREGUIN under orders from Dr. Kristal Fregoso MD, for the diagnosis of left lateral epi. for a total of 12 visit(s). Please see the following information for a summary of their discharge status. 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 left ham sawyer strength with elbow bent 50#. pt states she feels like it is healing and she notices compensation that help her stay IND with work and ADL tasks. pt is agree with D/C POC. Patient Goals: Decrease Pain Goal:100% adherence to protocol: Yes Goal:ROM equal to unaffected hand: Yes Goal:Environmental Health Officer/Pinch strength at least 75% of unaffected hand: Yes Goal:No pain with affected hand use: Yes Goal:Full use of affected hand in daily activities including: Yes Plan: cont HEP and stretches Discharge Comments: pt was seen for 12 OT sessions with dx of left lateral epi. pt reports 90% improvement and will cont. with her HEP. Pt has met OT goals and d/c at this time. If there are questions or concerns regarding this patient's occupational therapy, please fell free to call me at [phone]. Thank you for the referral of this patient. Sincerely, Valerie Hernandez, OTR/L, CHT
== END 2023-03-22 19:00 | disposition home or self-care (01) ==
LOC: OT 16:30
PROVIDERS: PCP Family Medicine; Referring Provider Family Medicine; Visit Provider Family Medicine
DX: M77.12 Lateral epicondylitis, left elbow (principal)
CPT/HCPCS: 97035; 97110; 97140; 97166; 97530

== ENCOUNTER 2023-11-02 05:53 | Day surgery (SDC) | payer OTHER, SELFPAY ==
[2023-11-02] VITALS (7 sets, daily range): BP systolic 95–136; BP diastolic 62–73; PULSE 51–67; RESP 16; TEMP 36.1–36.7; O2SAT 95–99; BMI 29.5
[2023-11-02] MEDS: Lactated Ringers 1,000 ML 15 ML IV (06:27)
[2023-11-02] MEDS: Cefazolin 2 GM in 0.9% Normal Saline (100mL Bag) 100 ML IV (07:35)
[2023-11-02] MEDS: Lidocaine 1%/Epi 1:200 (30ml) 30 ML AMPUL (07:49)
--- NOTE | 2023-11-02 12:00 | OP.PCM_ITS ---
Report of Operation Date of Procedure: 11/02/23 Description of Surgical Findings:: Preoperative diagnosis: Left ring finger distal interphalangeal joint mucous cyst Postoperative diagnosis: Left ring finger distal interphalangeal joint mucous cyst Procedure: Left ring finger distal interphalangeal joint mucous cyst excision with debridement of dorsal rim osteophyte from the distal phalanx Primary Surgeon: Andrea Hamilton DO Contract Project Manager: Afshan Coronado PA-C Anesthesia: MAC with digital nerve block Integrated Circuit Fabricator: Andrew Teran CRNA Complications: None apparent IV fluids: Per anesthesia record Estimated blood loss: 3 cc Specimen: None Packing/drains: None Implants: None Urine output: None recorded Preoperative indications: This is a 62-year-old female seen in the outpatient setting for a chronic left ring finger mucous cyst enlarging in appearance and causing pain when touched or bumped. 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 I saw the patient the office. We discussed benign neglect versus operative excision. She did decide upon surgical excision. The risk, benefits, terms of procedure were reviewed with patient at length and she agreed to proceed. Risks included but were not limited to bleeding, flexion, loss of life or limb, nonhealing wounds, cyst recurrence, persistent pain, stiffness, neurovascular injury, DVT or PE. She expressed understanding of these risks and wished to proceed with surgery. Description of procedure: Patient was identified the preoperative holding area by name, medical record number, and date of . The operative extremity was marked. All questions were answered to patient satisfaction. Informed consent was confirmed with the patient. At time of her procedure, patient brought to the operative suite positioned supine a standard operating table. All bony prominences well-padded. MAC anesthesia was administered. A hand table was attached to the patient's left side. Prepping the skin with rubbing alcohol, I performed a digital nerve block with 10 cc 1% lidocaine with epinephrine 1: 200,000. We then prepped and draped the left hand in a normal, sterile orthopedic fashion. We then performed a timeout with all parties in attendance in agreement with side, site, operation be performed. No concerns voiced elected proceed with surgery. 2 g Ancef was administered IV prior to the procedure by anesthesia staff. I first applied a turnicot to the left ring finger which was on for approximate ly 10 minutes. I marked a longitudinal incision in line with the ulnar paronychial fold centered over the distal interphalangeal joint. The cyst was slightly radial but was avoided with the incision due to significantly thin skin. Full-thickness skin flaps were developed down to the level of the joint capsule. I identified the terminal extensor tendon as well as the ulnar collateral ligament. The interval between the tendon and the collateral ligament was identified and subsequently used to excise joint capsule at this level. The joint was then entered. There was a dorsal rim osteophyte off the base of the distal phalanx beneath the extensor tendon. The tendon was carefully elevated with a [place] elevator and I used a rongeur to debride the dorsal rim osteophyte. The cyst stalk was encountered throughout dissection which appeared to be tracking from the radial aspect of the joint. I did open the cyst stock and expressed gelatinous clear fluid consistent with a mucous cyst. The stalk of the cyst was excised and cyst contents were cauterized. I did not excise the complete cyst due to the thin skin overlying the cyst. Turnicot was removed. Hemostasis achieved with bipolar cautery. The wound was thoroughly irrigated normal saline solution. I then closed the wound in standard fashion with interrupted simple 4-0 nylon suture. Xeroform was applied as well as a bulky loose dressing. Anesthesia was reversed. Patient was transferred to a gurney and subsequently to PACU in stable condition. She tolerated procedure well without apparent complication. Postoperative plan: Patient be discharged home today after meeting same-day surgery criteria. Patient will be weightbearing less than 3 pounds to the left hand. She will follow-up in 14 days for suture removal and wound check. Active range of motion encouraged. Prescription for [place] provided, otherwise [id number] analgesics as needed. Ice and elevation encouraged.
== END 2023-11-02 09:45 | disposition home or self-care (01) ==
LOC: SDC 05:55 → AC 06:00
PROVIDERS: PCP Family Medicine; Referring Provider Student in an Organized Health Care Education/Training Program; Visit Provider Student in an Organized Health Care Education/Training Program
PROC: (CPT 26160; principal; 2023-11-02 07:20)
DX: M25.842 Other specified joint disorders, left hand (principal); M25.742 Osteophyte, left hand; M19.042 Primary osteoarthritis, left hand; F32.A Depression, unspecified; G47.30 Sleep apnea, unspecified; E03.9 Hypothyroidism, unspecified; Z79.890 Hormone replacement therapy; Z79.899 Other long term (current) drug therapy
CPT/HCPCS: 26160; 01810; J7120; J2405

== ENCOUNTER → 2023-12-22 | Outpatient (CLI) | payer OTHER, SELFPAY ==
--- NOTE | 2023-12-22 09:36 | BI_ITS ---
MAMMOGRAPHY - BILATERAL SCREENING REASON FOR EXAM: Female, 63 years old. Routine annual screening examination. PERTINENT HISTORY: Personal history of breast cancer. Prior right mastectomy. Grandmothers with breast cancer. History of prior left stereotactic breast biopsy. TECHNIQUE: Digital bilateral breast miranda (3D mammographic acquisition) in the CC and MLO projections. 2-D mediolateral oblique (MLO) and craniocaudad (CC) views of both breasts were obtained. CAD: Full Field Digital Mammography with Computer Added Detection was performed. COMPARISON: Comparison is made with prior study dated December 14, 2022 and November 29, 2021. FINDINGS: Breast Composition: The breasts are heterogeneously dense, which may obscure small masses. There are no dominant masses or suspicious calcifications. Once again, 2 adjacent tissue clip markers are seen in the retroareolar region of the left breast. Stable 1 cm well-defined nodular density in the retroareolar region of the left breast. No other significant abnormalities are identified. There has been no significant change since the prior study. BI/SCRN MAMM (CAD)W/MIRANDA BILAT IMPRESSION: Stable bilateral screening mammogram. Yearly follow-up mammogram recommended. (A) ASSESSMENT CATEGORY: BIRADS Category 2: Benign. A letter regarding these results will be sent to the patient by the facility within 30 days. Approximately 10% of breast cancers are not detected by mammography. A normal mammogram should not delay biopsy of a clinically suspicious abnormality. [id number] Electronically Signed: Nestor Allison MD at 12:21 EST ,
--- OUTSIDE RECORDS SUMMARY | 2023-12-22 10:04 | XMS RPT_ITS | CCD ---
Author Name Unknown Address [address] [place] [address] Organization [facility] Care Team Providers Care Service Cleaner Name Role Phone Unavailable Primary Care Provider UnavailKristal Almaguer MD Primary Care Provider PROVIDER, UNKNOWN Referring Unavailable KRISTAL FREGOSO Primary Care Unavailable EUNICE KRISTAL E Primary Care Unavailable CHADWICK BLACK Referring Unavailable KATHERINE HARMON Attending Unavailable EUNICE, KRISTAL Randa Primary Care Unavailable NEHA HAMM Attending Unavailable CHADWICK BLACK Referring Unavailable BRYNEDEL KRISTAL E Primary Care Unavailable CHADWICK BLACK Referring Unavailable CHADWICK BLACK Attending Unavailable CHADWICK BLACK Referring Unavailable MIEDEL, KRISTAL E Primary Care Unavailable DELLA GOODEN Attending Unavailable CHADWICK BLACK Attending Unavailable EUNICE, KRISTAL E Primary Care Unavailable CHADWICK BLACK Admitting Unavailable CHADWICK BLACK Attending Unavailable CHADWICK BLACK Admitting Unavailable CHADWICK BLACK Attending Unavailable EUNICE, KRISTAL E Primary Care Unavailable CHADWICK BLACK Referring Unavailable BRYNEDBEATRIZ, KRISTAL E Primary Care Unavailable CHADWICK BLACK Referring Unavailable BRYNEDBEATRIZ, KRISTAL E Primary Care Unavailable Allergies Allergy Classification Reported Allergen(s) Allergy Type Date of Onset Reaction(s) Facility (16 sources) Penicillins; Translations: [PENICILLINS] Propensity to adverse reactions 10-05-2005 [facility] (16 sources) Zinc Acetate; Translations: [ZINC ACETATE] Drug Allergy 10-05-2005 [facility] Medications Completed/Discontinued Medications Medication Drug Class(es) Dates Sig (Normalized) Sig (Original) dexamethasone 0.001 mg/mg / neomycin 0.0035 mg/mg / polymyxin b 10 unt/mg ophthalmic ointment (2 sources) Aminoglycoside Antibacterial, Polymyxin-class Antibacterial, Corticosteroid Start: 10-24-2023 neomycin/polymyx in b/dexametha(MAXI TROL 3.5 MG/G-10,000 UNIT/G-0.1 % EYE OINTMENT) Indications: Choroidal malignant melanoma, 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, 4 Times daily for 1 week, then twice daily for 2 weeks then stop 3.5 g 1 10/24/2023 Active Problems Active Problems Problem Classification Problem Date Documented Da te Episodic/Chronic Anxiety disorders (15 sources) Anxiety disorder; Translations: [Anxiety disorder, unspecified] 02-17-2014 Chronic Cancer of breast (14 sources) Carcinoma in situ of breast; Translations: [Unspecified type of carcinoma in situ of unspecified breast] Onset: 07-25-2006 11-22-2021 Chronic Cancer of breast (11 sources) History of ductal carcinoma in situ of breast; Translations: [Personal history of in-situ neoplasm of breast] Onset: 10-05-2023 10-05-2023 Episodic Cancer; other and unspecified primary (17 sources) Malignant melanoma of right choroid; Translations: [Malignant neoplasm of right choroid] Onset: 10-05-2023 09-04-2023 Chronic Cancer; other and unspecified primary (2 sources) Malignant neoplasm of right choroid; Translations: [Choroidal malignant melanoma, right (HCC)] Onset: 10-05-2023 Chronic Mood disorders (15 sources) Depressive disorder; Translations: [Depression] Onset: 10-07-2008 11-22-2021 Chronic Other and unspecified benign neoplasm (2 sources) Benign neoplasm of right choroid; Translations: [Benign neoplasm of right choroid] Onset: 08-23-2023 Episodic Other female genital disorders (14 sources) Abnormal vaginal bleeding; Translations: [Abnormal uterine and vaginal bleeding, unspecified] Onset: 10-12-2015 10-12-2015 Chronic Other liver diseases (2 sources) Lesion of liver; Translations: [Liver disease, unspecified] 10-09-2023 Chronic Other liver diseases (1 source) Liver disease, unspecified; Translations: [Liver lesion] Onset: 12-04-2023 Chronic Residual codes; unclassified (11 sources) Obstructive sleep apnea syndrome; Translations: [Obstructive sleep apnea (adult) (pediatric)] Onset: 2022 10-05-2023 Chronic Thyroid disorders (15 sources) Hypothyroidism; Translations: [Hypothyroidism, unspecified] Onset: 09-11-2012 09-11-2012 Chronic Past or Other Problems Problem Classification Problem Date Documented Da te Episodic/Chronic Allergic reactions (14 sources) Urticaria; Translations: [Urticaria, unspecified] Onset: 02-17-2014 11-22-2021 Episodic Coma; stupor; and brain damage (14 sources) Daytime somnolence; Translations: [Somnolence] Onset: 03-20-2014 03-20-2014 Episodic Malaise and fatigue (14 sources) Malaise and fatigue; Translations: [Other malaise] Onset: 10-12-2015 10-12-2015 Episodic Other lower respiratory disease (14 sources) Snoring; Translations: [Snoring] Onset: 05-16-2014 05-16-2014 Episodic Results Test Name Value Interpretation Reference Range Facil ity Vital Signs Date Time Vital Sign Value Performing Clinician Faci lity 10-05-2023 14:06-0500 Body temperature 97.5 [degF] Katherine Harmon MD Work Phone: [facility] 10-05-2023 14:06-0500 Body weight 86.27 kg Katherine Harmon MD Work Phone: [facility] 10-05-2023 14:06-0500 Diastolic blood pressure 65 mm[Hg] Katherine Harmon MD Work Phone: [facility] 10-05-2023 14:06-0500 Heart rate 67 /min Katherine Harmon MD Work Phone: [facility] 10-05-2023 14:06-0500 Respiratory rate 16 /min Katherine Harmon MD Work Phone: [facility] 10-05-2023 14:06-0500 SaO2% (BldA) [Mass fraction] 97 % Katherine Harmon MD Work Phone: [facility] 10-05-2023 14:06-0500 Systolic blood pressure 115 mm[Hg] Katherine Harmon MD Work Phone: [facility] 10-05-2023 13:04-0500 Body height 171.5 cm Neha Banjac [employer] Work Phone: [facility] 10-05-2023 13:04-0500 Body weight 85 kg Neha Kalebc [employer]ESSION[employer] Work Phone: [facility] 10-05-2023 13:04-0500 Diastolic blood pressure 72 mm[Hg] Neha Karenjac [employer]ESSION[employer] Work Phone: [facility] 10-05-2023 13:04-0500 Heart rate 64 /min Nehaharish Manuelc [employer] PROFESSION[employer] Work Phone: [facility] 10-05-2023 13:04-0500 SaO2% (BldA) [Mass fraction] 96 % Neha Karenjac [employer]ESSION[employer] Work Phone: [facility] 10-05-2023 13:04-0500 Systolic blood pressure 118 mm[Hg] Neha Kalebc [employer] PROFESSION[employer] Work Phone: [facility] Encounters Encounter Date Encounter Type Care Provider Facility Start: 12-04-2023 ambulatory UNKNOWN PROVIDER Facili ty:[facility] Start: 10-25-2023 End: 10-25-2023 ambulatory CHADWICK BLACK Facility:[facility] Start: 10-25-2023 End: 10-25-2023 ambulatory Della Gooden [employer]ESSION[employer] Work Phone: Radiation Oncology Procedures Date Procedure Procedure Detail Performing Clinician Start: 10-05-2023 Ct abdomen & pelvis w/contrast material Concha Cindea [employer] Work Phone: Start: 10-05-2023 Ct thorax w/contrast material Concha Cindea [employer] Work Phone: Start: 10-19-2016 Lipid 1996 panel - S jazmyn or Plasma Concha Cindea [employer] Work Phone: Start: 04-08-2016 Colonoscopy Concha Tasneem ino [employer]ESSION[employer] Work Phone: Plan of Treatment Date Care Activity Detail Author Start: 04-08-2026 Colonoscopy Colonoscopy [facility] Start: 04-08-2026 Colorectal Cancer Screening Colorectal Cancer Screening [facility] Start: 09-01-2024 Urine microalbumin profile DTaP,Tdap,Td Vaccine (3 - Td or Tdap) [facility] Start: 07-28-2023 Covid-19 Vaccine ( season) Covid-19 Vaccine () [facility] Start: 07-28-2023 Influenza vaccination Influenza Vaccine (#1) [facility] Start: 12-26-2021 Covid-19 Vaccine (4 - Moderna series) Covid-19 Vaccine (4 - Moderna series) [facility] Start: 2021 RSV Vaccine (1 - 1-dose 60+ series) RSV Vaccine (1 - 1-dose 60+ series) [facility] Start: 10-19-2021 Lipid 1996 panel - Serum or Plasma Lipid Screening [facility] Start: 03-02-2020 Pap Testing Pap Testing [facility] Start: 10-19-2019 Diabetes Screening Diabetes Screening [facility] Start: 08-14-2018 Mammography Mammogram Screening [facility] Start: 11-26-2014 HPV Testing HPV Testing [facility] Start: 2011 Shingrix Vaccine (1 of 2) Shingrix Vaccine (1 of 2) [facility] Start: 2006 Cologuard (FIT-DNA) Cologuard (FIT-DNA) [facility] Start: [address] COLONOGRAPHY [facility] Start: 2006 Fecal Occult Blood Fecal Occult Blood [facility] Start: 2006 SIGMOIDOSCOPY SIGMOIDOSCOPY [facility] Start: 1979 Annual PCP Team Chronic Disease Visit Annual PCP Team Chronic Disease Visit [facility] Start: 1979 Hepatitis C Screening Hepatitis C Screening [facility] Start: 05-08-1962 Covid-19 Vaccine (#1) Covid-19 Vaccine (#1) [facility] End: 2024 Mri abdomen w/o & w/contrast material MRI LIVER WO/W IVCON Radiology Routine Choroidal malignant melanoma, right (HCC) Lesion of liver 1 Occurrences starting 10/09/2023 until 2024 [facility] Work Phone: Immunizations Immunization Date Immunization Notes Care Provider Nicole galvan 09-06-2023 influenza, injectabl e, quadrivalent, preservative free Neha Banjac [employer].[facility] Work Phone: [facility] Work Phone: 09-15-2022 influenza, injectabl e, quadrivalent, preservative free Neha Banjac SILK CONDITIONER.[facility] Work Phone: [facility] Work Phone: 09-15-2022 influenza virus vaccine, unspecified formulation Concha Cindea [employer]ILK CONDITIONER.[facility] Work Phone: [facility] 10-12-2016 influenza virus vaccine, unspecified formulation Concha Cindea SILK CONDITIONER.[facility] Work Phone: [facility] 10-12-2015 influenza, injectabl e, quadrivalent, contains preservative Concha Cindea [employer]ILK CONDITIONER.[facility] Work Phone: [facility] Work Phone: 09-01-2014 influenza, seasonal, injectable Concha Cindea [employer]IL[employer] CONDITIONER.[facility] Work Phone: [facility] 09-01-2014 tetanus toxoid, redu tiffanie diphtheria toxoid, and acellular pertussis vaccine, adsorbed Concha Cindea [employer]ILK CONDITIONER.[facility] Work Phone: [facility] 10-12-2013 influenza virus vaccine, unspecified formulation Concha Cindea SILK CONDITIONER.[facility] Work Phone: [facility] Work Phone: 09-11-2012 influenza virus vaccine, unspecified formulation Concha Cindea SILK CONDITIONER.[facility] Work Phone: [facility] 10-07-2008 influenza virus vaccine, unspecified formulation Concha Cindea SILK [employer]ER.[facility] Work Phone: [facility] Work Phone: 05-27-2004 diphtheria and tetan us toxoids, adsorbed for pediatric use Concha Cindea [employer]ILK [employer]ER.[facility] Work Phone: [facility] Work Phone: Payers Date Payer Category Payer Unknown [id number] 2022 Unknown [id number] 2022 Unknown [id number] 1960 Unknown [id number] Social History Date Type Detail Facility Tobacco smoking stat NHIS Never smoked tobacco [facility] Work Phone: Start: 07-13-2022 End: 10-27-2023 Alcohol intake Current drinker of alcohol (finding) [facility] Start: 07-13-2022 End: 10-05-2023 History of Social function [facility] Start: 07-13-2022 End: 10-05-2023 Tobacco use panel [facility] National Score (1-10 0), lower number is lower risk Not on file [facility] Start: 02-03-2011 Alcohol [facility] Start: 1960 [facility] At [facility] file [facility] Start[facility] 1960 [facility] Start: 08-25-2023 Gender identity Identifies as female gender (finding) [facility] Start: 08-25-2023 Sexual orientation Heterosexual (fin ding) [facility] Clinical Notes 04-08-2016 to 10-27-2023 Patient InstructionsDella Gooden APRN.[facility] - 10/25/2023 2:30 PM Chadwick Carvalho MD - 10/24/2023 8:20 AM Katherine Garcia MD - 10/09/2023 12:00 AM Katherine Garcia MD - 10/08/2023 10:29 AM EST Note Date & Type Note Facility 10-27-2023 Instructions Della Gooden APRN.[facility] - 10/27/2023 11:16 AM EST It was nice to speak with you today, and I hope you found today's meeting helpful. You will continue to follow with Dr. Black, but please know that we are still apart of your team and are available as needed. Kind regards, Della Gooden APRN.CNP Radiation Oncology Nurse Practitioner supporting the practice of Dr. Katherine Harmon Office# [phone] documented in this encounter [facility] 10-25-2023 Note HNO ID: [id number] Author: Della Gooden APRN.CNP Service: ? Author Type: Nurse Practitioner Type: Progress Notes Filed: 10/27/2023 11:17 AM Note Text: [facility] - SURVIVORSHIP This visit is a Virtual MyChart video encounter which required patient-provider interaction for the medical decision making as documented below. Persons Present: patient I have communicated my name and active licensure. The patient?s identity and physical location were verified at the time of this visit. Karina Arreguin or their legal containers sales representative has been informed of the risks and benefits of -- and alternatives to -- treatment through a remote evaluation and consents to proceed with the evaluation remotely. Total Time Spent: I spent a total of 40 minutes on the date of the service which included preparing to see the patient, [id number] patient care, completing clinical documentation, obtaining and/or reviewing separately obtained history, performing a medically appropriate examination, counseling and educating the patient/family/caregiver, ordering medications, tests, or procedures, communicating with other HCPs (not separately reported), independently interpreting results (not separately reported), and communicating results to the patient/family/caregiver. 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 S/p plaque brachytherapy (8297 cGy) completed 10/06/23 - 10/09/23. No FNAB. 2.) History of right breast cancer s/p mastectomy in 2005. INTERVAL HISTORY: Karina Arreguin returns today for survivorship visit. She underwent plaque brachytherapy 10/06/23-10/09/[address] Harmon and Dr. Black. CT CAP on 10/05/23 revealed few subcentimeter indeterminate pulmonary nodules and indeterminate 1.3 cm hepatic lesion c/w benign hemangioma vs met. She last met with Dr. Black on 10/24/23 with plans to obtain MRI liver for further characterization and RTC in 3 months. Today she presents unaccompanied in good spirits. She is recovering well from procedure with minor irritation and continued tearing of OD. She follows with PCP routinely and undergoes annual mammograms. She has a good support system in family. Data Reviewed: CT CHEST W IVCON Result Date: 10/05/2023 IMPRESSION: 1. Few indeterminate pulmonary nodules measuring less than 6 mm. Recommend follow-up as warranted by patient's history of melanoma. 2. Indeterminate mildly enlarged AP window lymph node. 3. Postoperative changes of RIGHT mastectomy and RIGHT axillary lymph node dissection with no evidence for local recurrence. Trust Accounts Supervisor: KIMO Transcribe Date/Time: Oct 05 2023 4:24P Dictated by : OMERO RAMIREZ MD This examination was interpreted and the report reviewed and electronically signed by: OMERO RAMIREZ MD on Oct 05 2023 4:36PM EST CT ABD/PEL W IVCON Result Date: 10/05/2023 IMPRESSION: Indeterminate 1.3 cm hepatic lesion. While this is favored to be a benign lesion such as a hemangioma, in the setting of newly diagnosed choroidal melanoma MRI of the liver is recommended for further characterization. ACTIONABLE RESULT: FOLLOW-UP Acuity: Actionable Findings: Liver Routing Code: LV_1 Recommendation: MRI LIVER WO/W IVCON (add Dotarem in comments) Time Frame: as soon as possible, when the patient's clinical state allows. COMMUNICATION: Results will be communicated with the ordering provider via [employer] staff message or phone message by [facility] [employer] within 2 business days of report finalization. --END OF FINDING-- Trust Accounts Supervisor: PSCB Transcribe Date/Time: Oct 05 2023 4:01P Dictated by : SHANTANU PERDUE MD This examination was interpreted and the report reviewed and electronically signed by: MAIKOL JACOME MD on Oct 05 2023 5:24PM EST Allergies: Amerigel [Zinc Acet* Comment: red line from application site Penicillins Comment:childhood Current Outpatient Medications Medication Sig Dispense Refill neomycin/polymyxin b/dexametha(MAXITROL 3.5 MG/G-10,000 UNIT/G-0.1 % EYE OINTMENT) In the right eye, 4 Times daily for 1 week, then twice daily for 2 weeks then stop 3.5 g 1 levothyroxine 100 mcg cap Take 100 mcg by mouth daily before breakfast. multivitamin tablet Take 1 tablet by mouth once daily. loratadine (CLARITIN) 10 mg tablet Take 1 tablet by mouth once daily. iv contrast (will be provided with radiology test) CT Chest ABD/PEL-Inject, intravenously, once for 1 dose.No IV access, insert saline lock prior to the beginning of sedation, infusion, injection of imaging exam. Discontinue saline lock post exam. If Pt. has a central line or IVAD, may access for administration according to line specific nursing protocol. Once exam is complete flush line and de-access according t (more content not included)... [facility] 10-25-2023 History of Presen t illness Narrative [facility] VISIT - SURVIVORSHIP This visit is a Virtual MyChart video encounter which required patient-provider interaction for the medical decision making as documented below. Persons Present: patient I have communicated my name and active licensure. The patient s identity and physical location were verified at the time of this visit. Karina Arreguin or their legal containers sales representative has been informed of the risks and benefits of -- and alternatives to -- treatment through a remote evaluation and consents to proceed with the evaluation remotely. Total Time Spent: I spent a total of 40 minutes on the date of the service which included preparing to see the patient, [id number] patient care, completing clinical documentation, obtaining and/or reviewing separately obtained history, performing a medically appropriate examination, counseling and educating the patient/family/caregiver, ordering medications, tests, or procedures, communicating with other HCPs (not separately reported), independently interpreting results (not separately reported), and communicating results to the patient/family/caregiver. 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 S/p plaque brachytherapy (8297 cGy) completed 10/06/23 - 10/09/23. No FNAB. 2.) History of right breast cancer s/p mastectomy in 2006. INTERVAL HISTORY: Karina Arreguin returns today for survivorship visit. She underwent plaque brachytherapy 10/06/23-10/09/[address] Harmon and Dr. Black. CT CAP on 10/05/23 revealed few subcentimeter indeterminate pulmonary nodules and indeterminate 1.3 cm hepatic lesion c/w benign hemangioma vs met. She last met with Dr. Black on 10/24/23 with plans to obtain MRI liver for further characterization and RTC in 3 months. Today she presents unaccompanied in good spirits. She is recovering well from procedure with minor irritation and continued tearing of OD. She follows with PCP routinely and undergoes annual mammograms. She has a good support system in family. Data Reviewed: CT CHEST W IVCON Result Date: 10/05/2023 IMPRESSION: 1. Few indeterminate pulmonary nodules measuring less than 6 mm. Recommend follow-up as warranted by patient's history of melanoma. 2. Indeterminate mildly enlarged AP window lymph node. 3. Postoperative changes of RIGHT mastectomy and RIGHT axillary lymph node dissection with no evidence for local recurrence. Trust Accounts Supervisor: KIMO Transcribe Date/Time: Oct 05 2023 4:24P Dictated by : OMERO RAMIREZ MD This examination was interpreted and the report reviewed and electronically signed by: OMERO RAMIREZ MD on Oct 05 2023 4:36PM EST CT ABD/PEL W IVCON Result Date: 10/05/2023 IMPRESSION: Indeterminate 1.3 cm hepatic lesion. While this is favored to be a benign lesion such as a hemangioma, in the setting of newly diagnosed choroidal melanoma MRI of the liver is recommended for further characterization. ACTIONABLE RESULT: FOLLOW-UP Acuity: Actionable Findings: Liver Routing Code: LV_1 Recommendation: MRI LIVER WO/W IVCON (add Dotarem in comments) Time Frame: as soon as possible, when the patient's clinical state allows. COMMUNICATION: Results will be communicated with the ordering provider via [employer] staff message or phone message by [facility] within 2 business days of report finalization. --END OF FINDING-- Trust Accounts Supervisor: KIMO Transcribe Date/Time: Oct 05 2023 4:01P Dictated by : SHANTANU PERDUE MD This examination was interpreted and the report reviewed and electronically signed by: MAIKOL JACOME MD on Oct 05 2023 5:24PM EST Allergies: Amerigel [Zinc Acet* Comment: red line from application site Penicillins Comment:childhood Current Outpatient Medications Medication Sig Dispense Refill neomycin/polymyxin b/dexametha(MAXITROL 3.5 MG/G-10,000 UNIT/G-0.1 % EYE OINTMENT) In the right eye, 4 Times daily for 1 week, then twice daily for 2 weeks then stop 3.5 g 1 levothyroxine 100 mcg cap Take 100 mcg by mouth daily before breakfast. multivitamin tablet Take 1 tablet by mouth once daily. loratadine (CLARITIN) 10 mg tablet Take 1 tablet by mouth once daily. iv contrast (will be provided with radiology test) CT Chest ABD/PEL-Inject, intravenously, once for 1 dose.No IV access, insert saline lock prior to the beginning of sedation, infusion, injection of imaging exam. Discontinue saline lock post exam. If Pt. has a central line or IVAD, may access for administration according to line specific nursing protocol. Once exam is complete flush line and de-access according to line specific nursing protocol in the CT contrast administration guidelines link. 1 Each 0 enteric contrast (will be provided with radiology test) For CT CHESTABD/PEL W IVCON Routine order Administer, As Directed One Time Only, via Oral, Rectal, both Oral and Rectal, Enteric Tube, Stoma or Indwelling Catheter, Enteric Contrast as designated per enteric contrast guidelines 1 Each 0 doxycycline 20 mg tablet Take 20 mg by mouth two times a day. sertraline (ZOLOFT) 100 mg tablet Take 1 tablet by mouth once daily. 90 tablet 3 LORazepam (ATIVAN) 0.5 mg tab Take 1 tablet by mouth twice daily. 20 tablet 1 No current facility-administered medications for this visit. Family History Problem Relation Age of Onset Cancer Mother leukemia Depression Mother Anxiety disorder Mother Cancer Father Asthma Father Alzheimer's Disease Father Heart Brother Cancer Brother Cancer Maternal Grandmother Breast Cancer Maternal Grandmother Alzheimer's Disease Paternal Grandmother Hypothyroidism Paternal Grandmother other (kidney cancer) Maternal Uncle Survivorship Review of Systems Patient identified the following survivorship concerns related to her recent cancer diagnosis and treatment: Cardiac Toxicity: No Emotional Health: No Cognitive Function: No Fatigue/Sleep: No Lymphedema: No Pain: No Endocrine: No Sexual Function: No Healthy Lifestyle: No Preventative Health: No General Health Overall, the patient feels her health is Good. Any other concerns not identified today: No Video Exam (Examination performed via Video enabled technology) General appearance: Alert, oriented, pleasant, in NAD :Yes Ill appearing :No Lethargic appearing :No Eyes: Right eye tearing Respiratory distress :No Coughing noted :No Audible wheezing noted :No Neuro: Speech clear and fluent. Good insight. Moves BUE purposefully and against gravity. 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 S/p plaque brachytherapy (8297 cGy) completed 10/06/23 - 10/09/23. No FNAB. 2.) History of right breast cancer s/p mastectomy in 2005. - Clinically stable. - CT CAP on 10/05/23 revealed few subcentimeter indeterminate pulmonary nodules and indeterminate 1.3 cm hepatic lesion c/w benign hemangioma vs met. - No new complaints. - Encouraged to get MRI liver to further characterize lesion per Dr. Black. Orders placed by Dr. Black 10/24/23. - Survivorship plan of care provided and discussed. - All questions were addressed. - She has our contact information and was advised to call with any questions or concerns. - She will continue to follow with her PCP for optimal medical management and health surveillance. 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 - Radiation oncology will see her again as needed. 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 - Opportunity for patient and/or family questions provided - No referrals placed at this time and education provided Della Gooden APRN.RUTH Cc: MD Katherine Alejandre MD - [facility] Chadwick Black MD - [facility] Concha Anaya CNP - [facility] documented in this encounter [facility] 10-24-2023 Note HNO ID: [id number] Author: Chadwick Black MD Service: ? Author Type: Physician Type: Progress Notes Filed: 10/24/2023 9:20 AM Note Text: Here for POW #2 visit s/p Plaque removal for choroidal melanoma OD Current ocular medications: Maxitrol QID OD Cyclopentolate BID OD Doing well VA 20/50 IOP 18 No diplopia EOM normal Conjunctiva healing well No intraocular inflammation Today: Healing well, no drainage, no hemorrhage, no signs of infection Systemic: CT 1. Few indeterminate pulmonary nodules measuring less than 6 mm. Recommend follow-up as warranted by patient's history of melanoma. 2. Indeterminate mildly enlarged AP window lymph node. 3.Postoperative changes of RIGHT mastectomy and RIGHT axillary lymph node dissection with no evidence for local recurrence. Abd/Pel: Indeterminate 1.3 cm hepatic lesion. While this is favored to be a benign lesion such as a hemangioma, in the setting of newly diagnosed choroidal melanoma MRI of the liver is recommended for further characterization.Ordered Plan Continue maxitrol qid for 1 week, then bid for 2 weeks then stop Discontinue cyclogyl FU 3 months for fundus photos, B scan and OCT I have confirmed and edited as necessary the relevant ophthalmic history, ROS, and the neuro exam findings as obtained by others. I have seen and examined this patient. I have discussed the case and the management of this patient's care with the Resident/Fellow, if applicable. I also have reviewed and agree with the assessment and plan as stated above and agree with all of its relevant components. Chadwick Black MD October 24, 2023 9:17 AM [facility] 10-24-2023 History of Presen t illness Narrative Here for POW #2 visit s/p Plaque removal for choroidal melanoma OD Current ocular medications: Maxitrol QID OD Cyclopentolate BID OD Doing well VA 20/50 IOP 18 No diplopia EOM normal Conjunctiva healing well No intraocular inflammation Today: Healing well, no drainage, no hemorrhage, no signs of infection Systemic: CT 1. Few indeterminate pulmonary nodules measuring less than 6 mm. Recommend follow-up as warranted by patient's history of melanoma. 2. Indeterminate mildly enlarged AP window lymph node. 3.Postoperative changes of RIGHT mastectomy and RIGHT axillary lymph node dissection with no evidence for local recurrence. Abd/Pel: Indeterminate 1.3 cm hepatic lesion. While this is favored to be a benign lesion such as a hemangioma, in the setting of newly diagnosed choroidal melanoma MRI of the liver is recommended for further characterization.Ordered Plan Continue maxitrol qid for 1 week, then bid for 2 weeks then stop Discontinue cyclogyl FU 3 months for fundus photos, B scan and OCT I have confirmed and edited as necessary the relevant ophthalmic history, ROS, and the neuro exam findings as obtained by others. I have seen and examined this patient. I have discussed the case and the management of this patient's care with the Resident/Fellow, if applicable. I also have reviewed and agree with the assessment and plan as stated above and agree with all of its relevant components. Chadwick Black MD October 24, 2023 9:17 AM documented in this encounter [facility] 10-09-2023 Note HNO ID: [id number] Author: Katherine Harmon MD Service: Radiation Oncology Author Type: Physician Type: Progress Notes Filed: 10/12/2023 12:34 AM Note Text: KARINA ARREGUIN [id number] 10/09/2023 [facility] Department of Radiation Oncology 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 Also history of right breast cancer s/p mastectomy in 2005. After consultation with the mental health aides teacher the tumor was visualized and found to have dimensions 5.5 mm (r), 4.5 mm (c), 1.9 mm (h). A treatment plan was developed and 10 sources (2.803 U each) of I-125 were loaded onto the [id number] plaque. The patient was taken to the operative suite under the mental health aides teacher's direction. The tumor was visualized and a plaque template used to confirm placement with ultrasound guidance. After proper placement was confirmed the radioactive eye plaque was sutured into place. The plaque remained in place and treatment was delivered over 70.00 hrs. The plaque was then removed without incident. The total dose delivered was 8297 cGy prescribed to the apex at 1.9 mm. The patient tolerated the procedure well. RESPONSE: To be assessed in outpatient clinic. REMARKS: The patient will be followed by Dr. Black. Resident Physician Jet Escobar MD Staff Physician Katherine Harmon M.D 31:27 PM Electronically Signed cc: Dr. Kristal Fregoso [address] [facility] [place] [address] Dr. Lou Goncalves [address] [place] [address] Chadwick Black MD - [facility] 10-09-2023 History of Presen t illness Narrative KARINA ARREGUIN [id number] 10/09/2023 [facility] Department of Radiation Oncology 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 Also history of right breast cancer s/p mastectomy in 2005. After consultation with the mental health aides teacher the tumor was visualized and found to have dimensions 5.5 mm (r), 4.5 mm (c), 1.9 mm (h). A treatment plan was developed and 10 sources (2.803 U each) of I-125 were loaded onto the [id number] plaque. The patient was taken to the operative suite under the mental health aides teacher's direction. The tumor was visualized and a plaque template used to confirm placement with ultrasound guidance. After proper placement was confirmed the radioactive eye plaque was sutured into place. The plaque remained in place and treatment was delivered over 70.00 hrs. The plaque was then removed without incident. The total dose delivered was 8297 cGy prescribed to the apex at 1.9 mm. The patient tolerated the procedure well. RESPONSE: To be assessed in outpatient clinic. REMARKS: The patient will be followed by Dr. Black. Resident Physician Jet Escobar MD Staff Physician Katherine Haromn M.D :27 PM Electronically Signed cc: Dr. Kristal Fregoso [address] [facility] [place] [address] Dr. Lou Goncalves [address] [place] [address] [place] [address] Chadwick Black MD - [facility] documented in this encounter [facility] 10-08-2023 Note HNO ID: [id number] Author: Katherine Harmon MD Service: ? 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 Also history of right breast cancer s/p mastectomy in 2005. POD: #2 TREATMENT: I-125 eye plaque brachytherapy. Planned dose 8500 cGy to right eye. SUBJECTIVE: She is tolerating plaque well. She is taking ES tylenol as needed. ASSESSMENT/PLAN: Patient is tolerating treatment well. Continue with I-125 eye plaque brachytherapy. 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 Also history of right breast cancer s/p mastectomy in 2005. POD: #2 TREATMENT: I-125 eye plaque brachytherapy. Planned dose 8500 cGy to right eye. SUBJECTIVE: She is tolerating plaque well. She is taking ES tylenol as needed. ASSESSMENT/PLAN: Patient is tolerating treatment well. Continue with I-125 eye plaque brachytherapy. Signed by: Katherine Harmon MD documented in this encounter [facility] 10-07-2023 Note HNO ID: [id number] Author: Katherine Harmon MD Service: ? 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 Also history of right breast cancer s/p mastectomy in 2005. POD: #1 TREATMENT: I-125 eye plaque brachytherapy. Planned dose 8500 cGy to right eye. SUBJECTIVE: She is tolerating plaque well. She is taking ES tylenol every 6 hours. ASSESSMENT/PLAN: Patient is tolerating treatment well. Continue with I-125 eye plaque brachytherapy. 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 Also history of right breast cancer s/p mastectomy in 2005. POD: #1 TREATMENT: I-125 eye plaque brachytherapy. Planned dose 8500 cGy to right eye. SUBJECTIVE: She is tolerating plaque well. She is taking ES tylenol every 6 hours. ASSESSMENT/PLAN: Patient is tolerating treatment well. Continue with I-125 eye plaque brachytherapy. Signed by: Katherine Harmon MD documented in this encounter [facility] 10-05-2023 Note HNO ID: [id number] Author: Phi Lazar, RT(R) Service: Radiology Author Type: Technologist Type: Progress Notes Filed: 10/05/2023 4:01 PM Note Text: Radiology Service Progress Note PATIENT NAME: Karina Arreguin DATE OF SERVICE: October 05, 2023 TIME: 4:01 PM PATIENT IDENTITY VERIFICATION COMPLETED USING TWO (2) IDENTIFIERS: Name and Date of confirmed by patient verbally and Name and Date of confirmed by identification band. FALL SCREENING: Has the patient had 2 falls in the last year or 1 fall with injury or currently using an Ambulatory Assistive Device (Walker, Cane, Wheelchair, Crutches, etc.)? No PATIENT GENDER DATA: Female. status: : No status: NO. PATIENT RELEVANT IMPLANT DATA REVIEWED: Yes RADIOLOGY DEPARTMENT: CT; Exam(s) Completed: Chest Abdomen Pelvis PERIPHERAL IV DATA: Site assessment: Clean,Dry and Intact, Site disposition Discontinued SIGNED BY: RT Elizabeth(R) October 05, 2023 4:01 PM [facility] 10-05-2023 Note HNO ID: [id number] Author: Nyla Guzman RN Service: Radiology Author Type: Registered Nurse Type: Progress Notes Filed: 10/05/2023 3:35 PM Note Text: Radiology Service Progress Note DATE OF SERVICE: October 05, 2023 TIME: 3:30 PM PATIENT WEIGHT: 190 LBS PATIENT IDENTITY VERIFICATION COMPLETED USING TWO (2) STANDARD IDENTIFIERS: Name and Date of confirmed by patient verbally and Name and Date of confirmed by identification band. FALL SCREENING: Has the patient had 2 falls in the last year or 1 fall with injury or currently using an Ambulatory Assistive Device (Walker, Cane, Wheelchair, Crutches, etc.)? No PATIENT GENDER DATA: Female. status: : No status: NO. ALLERGIES: Reviewed and unchanged CONTRAST ALLERGY: No EXAM: CT -CONTRAST INDUCED NEPHROPATHY RISK FACTORS: Patient age > 60 years CREATININE: Creatinine Date Value Ref Range Status 09/30/2023 0.85 0.58 - 0.96 mg/dL Final 10/19/2016 1.08 (H) 0.58 - 0.96 mg/dL Final 03/11/2013 0.88 0.70 - 1.40 mg/dL Final Estimated Glomerular Filtration Rate Date Value Ref Range Status 09/30/2023 78 >=60 mL/min/1.73m? Final Comment: Estimated Glomerular Filtration Rate (eGFR) is calculated using the 2020 CKD-EPI creatinine equation. This equation utilizes serum creatinine, sex, and age as parameters. The creatinine assay has traceable calibration to isotope dilution-mass spectrometry. Refer to KDIGO guidelines for clinical interpretation. In patients with unstable renal function, e.g. those with acute kidney injury, the eGFR may not accurately reflect actual GFR. eGFR- Date Value Ref Range Status 10/19/2016 >60 Final P.O.C.T. RESULTS: N/A October 05, 2023 TREATMENT: No Hydration needed. IV SITE: Ambulatory: A peripheral IV was started in the Left antecubital site with a Angio cath: 22 gauge. and A Saline lock was inserted per protocol IV SITE APPEARANCE: Clean,Dry and Intact SIGNATURE: Nyla Guzman RN PATIENT NAME: Karina Arreguin DATE: October 05, 2023 TIME: 3:30 PM [facility] 10-05-2023 History of Presen t illness Narrative Radiology Service Progress Note PATIENT NAME: Karina Arreguin DATE OF SERVICE: October 05, 2023 TIME: 4:01 PM PATIENT IDENTITY VERIFICATION COMPLETED USING TWO (2) IDENTIFIERS: Name and Date of confirmed by patient verbally and Name and Date of confirmed by identification band. FALL SCREENING: Has the patient had 2 falls in the last year or 1 fall with injury or currently using an Ambulatory Assistive Device (Walker, Cane, Wheelchair, Crutches, etc.)? No PATIENT GENDER DATA: Female. status: : No status: NO. PATIENT RELEVANT IMPLANT DATA REVIEWED: Yes RADIOLOGY DEPARTMENT: CT; Exam(s) Completed: Chest Abdomen Pelvis PERIPHERAL IV DATA: Site assessment: Clean,Dry and Intact, Site disposition Discontinued SIGNED BY: RT Elizabeth(R) October 05, 2023 4:01 PM Radiology Service Progress Note DATE OF SERVICE: October 05, 2023 TIME: 3:30 PM PATIENT WEIGHT: 190 LBS PATIENT IDENTITY VERIFICATION COMPLETED USING TWO (2) STANDARD IDENTIFIERS: Name and Date of confirmed by patient verbally and Name and Date of confirmed by identification band. FALL SCREENING: Has the patient had 2 falls in the last year or 1 fall with injury or currently using an Ambulatory Assistive Device (Walker, Cane, Wheelchair, Crutches, etc.)? No PATIENT GENDER DATA: Female. status: : No status: NO. ALLERGIES: Reviewed and unchanged CONTRAST ALLERGY: No EXAM: CT -CONTRAST INDUCED NEPHROPATHY RISK FACTORS: Patient age > 60 years CREATININE: Creatinine Date Value Ref Range Status 09/30/2023 0.85 0.58 - 0.96 mg/dL Final 10/19/2016 1.08 (H) 0.58 - 0.96 mg/dL Final 03/11/2013 0.88 0.70 - 1.40 mg/dL Final Estimated Glomerular Filtration Rate Date Value Ref Range Status 09/30/2023 78 >=60 mL/min/1.73m Final Comment: Estimated Glomerular Filtration Rate (eGFR) is calculated using the 2020 CKD-EPI creatinine equation. This equation utilizes serum creatinine, sex, and age as parameters. The creatinine assay has traceable calibration to isotope dilution-mass spectrometry. Refer to KDIGO guidelines for clinical interpretation. In patients with unstable renal function, e.g. those with acute kidney injury, the eGFR may not accurately reflect actual GFR. eGFR- Date Value Ref Range Status 10/19/2016 >60 Final P.O.C.T. RESULTS: N/A October 05, 2023 TREATMENT: No Hydration needed. IV SITE: Ambulatory: A peripheral IV was started in the Left antecubital site with a Angio cath: 22 gauge. and A Saline lock was inserted per protocol IV SITE APPEARANCE: Clean,Dry and Intact SIGNATURE: Nyla Guzman RN PATIENT NAME: Karina Arreguin DATE: October 05, 2023 TIME: 3:30 PM documented in this encounter [facility] 10-05-2023 Note HNO ID: [id number] Author: Katherine Harmon MD Service: ? 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 Also history of right breast cancer s/p mastectomy in 2006. HPI: The patient is a 62 year old woman who presents with above diagnosis, for an opinion regarding the role of radiation therapy in the management of the patient's disease. Final recommendations will be communicated back to the requesting physician by way of the shared medical record, or letter to requesting physician via [place] mail. She had been surveilled for a known right eye nevus of 15 years by her mental health aides teacher. In June 2023 she noted blurred vision and ojhnson color distortion in the right eye. She saw Dr. Black in consultation on 08/29/23. B-scan was performed on 08/29/23 showing a choroid lesion 1.7 mm from the optic disc measuring 1.9 mm x 5.5 mm x 4.5 mm. No extraocular extension was detected. The patient was counseled about plaque brachytherapy and transpupillary thermotherapy, and she opted for plaque brachytherapy. CT chest and abdomen/pelvis to be performed immediately following today's consultation. She comes to clinic with her Jaskaran. She says her vision has been graying in the colors of the left eye with a curtain , and objects in the right eye seem smaller. She says she has a large floater all the time. No pain. Otherwise denies headaches, nausea, vomiting, focal neurologic weakness or numbness, seizure-like activity, gait abnormalities, or other complaints at this time. She is referred to radiation oncology for evaluation of her candidacy for eye plaque brachytherapy. ALLERGIES Allergen Reactions Amerigel [Zinc Acet* red line from application site Penicillins childhood MEDICATIONS: iv contrast (will be provided with radiology test) CT Chest ABD/PEL-Inject, intravenously, once for 1 dose.No IV access, insert saline lock prior to the beginning of sedation, infusion, injection of imaging exam. Discontinue saline lock post exam. If Pt. has a central line or IVAD, may access for administration according to line specific nursing protocol. Once exam is complete flush line and de-access according to line specific nursing protocol in the CT contrast administration guidelines link. enteric contrast (will be provided with radiology test) For CT CHESTABD/PEL W IVCON Routine order Administer, As Directed One Time Only, via Oral, Rectal, both Oral and Rectal, Enteric Tube, Stoma or Indwelling Catheter, Enteric Contrast as designated per enteric contrast guidelines doxycycline 20 mg tablet Take 20 mg by mouth two times a day. sertraline (ZOLOFT) 100 mg tablet Take 1 tablet by mouth once daily. levothyroxine (SYNTHROID) 75 mcg tablet Take 1 tablet by mouth once daily. (Patient taking differently: Take 88 mcg by mouth once daily.) LORazepam (ATIVAN) 0.5 mg tab Take 1 tablet by mouth twice daily. PAST MEDICAL HISTORY Diagnosis Date Contact dermatitis Unknown Cause Generalized anxiety disorder Anxiety, Generalized Luis Antonio's thyroiditis PMH - PAST MEDICAL HISTORY OF BREAST CANCER RIGHT BREAST Seasonal allergies Snoring Prior radiation therapy, collagen vascular disease, or inflammatory bowel disease: No Any implanted or external electric devices? No status: Post-menopausal. PAST SURGICAL HISTORY Procedure Laterality Date BX/EXC LYMPH NODE OPEN DEEP AXILLARY NODE 05/19/2006 COLONOSCOPY FLX DX W/COLLJ SPEC WHEN PFRMD 07/28/2006 Normal COLONOSCOPY FLX DX W/COLLJ SPEC WHEN PFRMD 04/08/2016 Colonoscopy INJ RADIOACTIVE TRACER FOR ID OF SENTINEL NODE 05/19/2006 MASTECTOMY,SIMPLE 05/19/2006 PAST SURGICAL HISTORY OF right breast lumpectomy PT ED OBST[facility]RICS [facility] GYNECOLOGY 1995 STEREO LOC FOR CORE BRST BX LT 12/17/2009 LEFT BREAST X2 AREAS--BENIGN STEREOTACTIC CORE BIOPSY 04/21/2006 RIGHT TONSILLECTOMY PRIMARY/SECONDARY Tonsillectomy FAMILY HISTORY Problem Relation Age of Onset Cancer Father Asthma Father Alzheimer's Disease Father Cancer Mother leukemia Depression Mother Anxiety disorder Mother Heart Brother Cancer Brother Cancer Maternal Grandmother Breast Cancer Maternal Grandmother Alzheimer's Disease Paternal Grandmother Hypothyroidism Paternal Grandmother SOCIAL HISTORY: Marital Status: Children: Two adult sons 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 Neuro detailed: Headache: No Pain: No Pain interventions: none required Fatigue: none Decreased visual acuity: Y (more content not included)... 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 Also history of right breast cancer s/p mastectomy in 2005. HPI: The patient is a 62 year old woman who presents with above diagnosis, for an opinion regarding the role of radiation therapy in the management of the patient's disease. Final recommendations will be communicated back to the requesting physician by way of the shared medical record, or letter to requesting physician via [place] mail. She had been surveilled for a known right eye nevus of 15 years by her mental health aides teacher. In June 2023 she noted blurred vision and johnson color distortion in the right eye. She saw Dr. Black in consultation on 08/29/23. B-scan was performed on 08/29/23 showing a choroid lesion 1.7 mm from the optic disc measuring 1.9 mm x 5.5 mm x 4.5 mm. No extraocular extension was detected. The patient was counseled about plaque brachytherapy and transpupillary thermotherapy, and she opted for plaque brachytherapy. CT chest and abdomen/pelvis to be performed immediately following today's consultation. She comes to clinic with her Jaskaran. She says her vision has been graying in the colors of the left eye with a curtain , and objects in the right eye seem smaller. She says she has a large floater all the time. No pain. Otherwise denies headaches, nausea, vomiting, focal neurologic weakness or numbness, seizure-like activity, gait abnormalities, or other complaints at this time. She is referred to radiation oncology for evaluation of her candidacy for eye plaque brachytherapy. ALLERGIES Allergen Reactions Amerigel [Zinc Acet* red line from application site Penicillins childhood MEDICATIONS: iv contrast (will be provided with radiology test) CT Chest ABD/PEL-Inject, intravenously, once for 1 dose.No IV access, insert saline lock prior to the beginning of sedation, infusion, injection of imaging exam. Discontinue saline lock post exam. If Pt. has a central line or IVAD, may access for administration according to line specific nursing protocol. Once exam is complete flush line and de-access according to line specific nursing protocol in the CT contrast administration guidelines link. enteric contrast (will be provided with radiology test) For CT CHESTABD/PEL W IVCON Routine order Administer, As Directed One Time Only, via Oral, Rectal, both Oral and Rectal, Enteric Tube, Stoma or Indwelling Catheter, Enteric Contrast as designated per enteric contrast guidelines doxycycline 20 mg tablet Take 20 mg by mouth two times a day. sertraline (ZOLOFT) 100 mg tablet Take 1 tablet by mouth once daily. levothyroxine (SYNTHROID) 75 mcg tablet Take 1 tablet by mouth once daily. (Patient taking differently: Take 88 mcg by mouth once daily.) LORazepam (ATIVAN) 0.5 mg tab Take 1 tablet by mouth twice daily. PAST MEDICAL HISTORY Diagnosis Date Contact dermatitis Unknown Cause Generalized anxiety disorder Anxiety, Generalized Luis Antonio's thyroiditis PMH - PAST MEDICAL HISTORY OF BREAST CANCER RIGHT BREAST Seasonal allergies Snoring Prior radiation therapy, collagen vascular disease, or inflammatory bowel disease: No Any implanted or external electric devices? No status: Post-menopausal. PAST SURGICAL HISTORY Procedure Laterality Date BX/EXC LYMPH NODE OPEN DEEP AXILLARY NODE 05/19/2006 COLONOSCOPY FLX DX W/COLLJ SPEC WHEN PFRMD 07/28/2006 Normal COLONOSCOPY FLX DX W/COLLJ SPEC WHEN PFRMD 04/08/2016 Colonoscopy INJ RADIOACTIVE TRACER FOR ID OF SENTINEL NODE 05/19/2006 MASTECTOMY,SIMPLE 05/19/2006 PAST SURGICAL HISTORY OF right breast lumpectomy PT ED OBSTETRICS & GYNECOLOGY 1995 STEREO LOC FOR CORE BRST BX LT 12/17/2009 LEFT BREAST X2 AREAS--BENIGN STEREOTACTIC CORE BIOPSY 04/21/2006 RIGHT TONSILLECTOMY PRIMARY/SECONDARY <AGE 13 Tonsillectomy FAMILY HISTORY Problem Relation Age of Onset Cancer Father Asthma Father Alzheimer's Disease Father Cancer Mother leukemia Depression Mother Anxiety disorder Mother Heart Brother Cancer Brother Cancer Maternal Grandmother Breast Cancer Maternal Grandmother Alzheimer's Disease Paternal Grandmother Hypothyroidism Paternal Grandmother SOCIAL HISTORY: Marital Status: Children: Two adult sons 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 Neuro detailed: Headache: No Pain: No Pain interventions: none required Fatigue: none Decreased visual acuity: Yes Diplopia: No Visual Field Changes: Yes Tinnitus: No Hearing loss: none Dysphagia: No Decreased balance: none Arm/leg numbness: No Focal weakness: No Limb discoordination: No Disorientation: none Decreased concentration: none Memory changes: none Word finding difficulty: none Dysarthria: none Seizures: No PHYSICAL EXAM: Vitals: LMP 01/25/2016 KPS: 90 Neuro function score (NFS): NFS 1 (Minor neurologic symptoms; fully active at home/work without assistance) General: Awake, alert, no acute distress HEENT: Normocephalic, atraumatic, sclera anicteric Neck: Supple, full range of motion Cardiovascular: No cyanosis Respiratory: No increased work of breathing, no audible wheezing, symmetric expansion Abdomen: Well-nourished, no distention Extremities: Full range of motion, no deformities Integument: Warm, dry, no rash Neuro: CN II-XII intact except for right II; no nystagmus; motor exam with 5/5 strength in bilateral biceps, triceps, wildlife protector, hip flexion, knee flexion and extension, plantarflexion and dorsiflexion; normal [id number]; gait testing deferred Psychiatric: AAOx4, fluent speech, appropriate mood and affect RADIOLOGY/LABORATORY DATA: See HPI ASSESSMENT AND PLAN: The natural history and treatment options for a choroidal melanoma were fully discussed with the patient and family. We reviewed the various treatment options including I-125 eye plaque. Karina Arreguin is an appropriate candidate for eye plaque brachytherapy. The rationale, risks, benefits, alternatives, personnel, and equipment involved in treatment were discussed at length with the patient, who consents to proceed with treatment. All questions were answered to her satisfaction. Karina Arreguin is scheduled for the procedure on 10/06/23. She will be staying at the [facility] after placement of the eye plaque. Jet Escobar MD PGY-3, Radiation Oncology Radiation oncology staff addendum and note of personal involvement in care: I have reviewed the note obtained and documented by the resident. I personally participated in the hernandez components. I have discussed the case and management of the patient's care with the resident. The following comments revise or confirm relevant hernandez components of the resident's note. 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 Also history of right breast cancer s/p mastectomy in 2006. The patient is being seen at the request of Dr. Black. KPS-90. The natural history and treatment options for a choroidal melanoma were fully discussed with the patient and family. I reviewed the various treatment options including I-125 eye plaque. The rationale, risks, benefits, alternatives, consent and personnel of treatment were fully discussed with the patient who voiced understanding. All questions were answered. She has given consent to proceed and has signed informed consent. She is scheduled for the procedure on 10/06/23. She will be staying at the [facility] after placement of the eye plaque. Signed by: Dr. Katherine Harmon Dept. of Radiation Oncology, [facility] [place] [address] cc: Dr. Kristal Fregoso [address] [place] [address] Dr. Lou Mercedes E Salvador [facility] [place] [address] Chadwick Black MD - [facility] documented in this encounter [facility] 10-05-2023 Instructions Neha Hamm APRN.GLOBAL PROFESSIONAL - 10/05/2023 1:38 PM EST [facility] Patient Instructions for Surgery FOOD INSTRUCTIONS: NO solid food or non-clear liquids for 8 hours prior to the arrival time for your surgery. Unless you are instructed otherwise, you are allowed to drink up to 12 ounces of clear liquids (e.g. water, black tea/coffee, fruit juice without pulp, Jil Daija, etc.) up until 2 hours prior to the arrival time for surgery. MEDICATION INSTRUCTIONS: Prior to Surgery: Do not take the following medications for 7 days prior to surgery: - any NSAID's (e.g. Motrin, Aleve, Arthrotec, Naproxen,etc) - any herbal preparations - Aspirin or aspirin containing products Do not take any Vitamin E / multivitamins for 10-14 days before surgery You are allowed to take Tylenol if needed until the day of surgery. MEDICATION INSTRUCTIONS: Day/Morning of Surgery: The following medications should be taken with sips of water: TAKE YOUR USUAL MORNING PRESCRIBED MEDICATIONS Tylenol, if needed for pain, can be taken on morning of surgery. You may resume all your remaining medications when you return home after your procedure If you have any questions or concerns regarding today's visit please do not hesitate to contact the [facility] center at [phone] or [phone], ext [phone]. Signature: Neha Hamm Date: October 05, 2023 documented in this encounter [facility] 10-05-2023 History and physical note HISTORY AND PHYSICAL EXAMINATION ([facility]) SERVICE DATE: 10/05/2023 SERVICE TIME: 1:23 PM PRIMARY CARE PHYSICIAN: Kristal Fregoso MD CHIEF COMPLAINT/HISTORY OF PRESENT ILLNESS: Ms. Arreguin is a 62 year old female referred to me for preoperative evaluation. My final recommendations will be communicated back to the requesting physician/surgeon by the way of the shared medical record. Referring Surgeon: Dr. Chadwick Black Date of Surgery: 10/06/2023 DESTROY LOC LESION RETINA W/ RADIATION IMPLANT/OD 10/09/2023 DESTROY LOC LESION RETINA W/RADIATION IMPLANT REMOVAL/OD Planned Surgery/Procedure: 10/06/2023 DESTROY LOC LESION RETINA W/ RADIATION IMPLANT/OD 10/09/2023 DESTROY LOC LESION RETINA W/RADIATION IMPLANT REMOVAL/OD Indication for Planned Surgery / Procedure: Choroid melanoma of right eye Refer to Assessment section for details of any comorbidities. Patient is Able to Perform the Following Physical Activity: Walk a block or two on level ground (2.75 METs) Climb a flight of stairs or walk up a hill (5.50 METs) Patient denies any chest pain or undue shortness of breath with the above physical activity. Patient's functional class is I based on self-reported physical activity. Significant Anesthesia Considerations: None. PAST MEDICAL/SURGICAL/FAMILY/SOCIAL HISTORY PAST MEDICAL HISTORY Diagnosis Date Contact dermatitis Unknown Cause Generalized anxiety disorder Anxiety, Generalized Luis Antonio's thyroiditis PMH - PAST MEDICAL HISTORY OF BREAST CANCER RIGHT BREAST Seasonal allergies Snoring PAST SURGICAL HISTORY Procedure Laterality Date BX/EXC LYMPH NODE OPEN DEEP AXILLARY NODE 05/19/2006 COLONOSCOPY FLX DX W/COLLJ SPEC WHEN PFRMD 07/28/2006 Normal COLONOSCOPY FLX DX W/COLLJ SPEC WHEN PFRMD 04/08/2016 Colonoscopy INJ RADIOACTIVE TRACER FOR ID OF SENTINEL NODE 05/19/2006 MASTECTOMY,SIMPLE 05/19/2006 PAST SURGICAL HISTORY OF right breast lumpectomy PT ED OBSTETRICS & GYNECOLOGY 1995 STEREO LOC FOR CORE BRST BX LT 12/17/2009 LEFT BREAST X2 AREAS--BENIGN STEREOTACTIC CORE BIOPSY 04/21/2006 RIGHT TONSILLECTOMY PRIMARY/SECONDARY <AGE 13 Tonsillectomy FAMILY HISTORY Problem Relation Age of Onset Cancer Father Asthma Father Alzheimer's Disease Father Cancer Mother leukemia Depression Mother Anxiety disorder Mother Heart Brother Cancer Brother Cancer Maternal Grandmother Breast Cancer Maternal Grandmother Alzheimer's Disease Paternal Grandmother Hypothyroidism Paternal Grandmother SOCIAL HISTORY Social History Tobacco Use Smoking status: Never Smokeless tobacco: Never Vaping Use Vaping Use: Never used Substance Use Topics Alcohol use: Yes Comment: Occasional Drug use: No MEDICATIONS/ALLERGIES Current Outpatient Medications Medication Sig Dispense Refill iv contrast (will be provided with radiology test) CT Chest ABD/PEL-Inject, intravenously, once for 1 dose.No IV access, insert saline lock prior to the beginning of sedation, infusion, injection of imaging exam. Discontinue saline lock post exam. If Pt. has a central line or IVAD, may access for administration according to line specific nursing protocol. Once exam is complete flush line and de-access according to line specific nursing protocol in the CT contrast administration guidelines link. 1 Each 0 enteric contrast (will be provided with radiology test) For CT CHESTABD/PEL W IVCON Routine order Administer, As Directed One Time Only, via Oral, Rectal, both Oral and Rectal, Enteric Tube, Stoma or Indwelling Catheter, Enteric Contrast as designated per enteric contrast guidelines 1 Each 0 doxycycline 20 mg tablet Take 20 mg by mouth two times a day. sertraline (ZOLOFT) 100 mg tablet Take 1 tablet by mouth once daily. 90 tablet 3 levothyroxine (SYNTHROID) 75 mcg tablet Take 1 tablet by mouth once daily. (Patient taking differently: Take 88 mcg by mouth once daily.) 90 tablet 3 LORazepam (ATIVAN) 0.5 mg tab Take 1 tablet by mouth twice daily. 20 tablet 1 No current facility-administered medications for this visit. ALLERGIES Allergen Reactions Amerigel [Zinc Acet* red line from application site Penicillins childhood REVIEW OF SYSTEMS General: No weight loss, malaise or fevers. Neuro: No history of TIA's, stroke, MIDDLEWARE ENGINEER tumor, impaired sensorium, hemiplegia, paraplegia or quadriplegia. No neurological symptoms or problems. Respiratory: Obstructive Sleep Apnea (on CPAP). Denies cough or wheeze. Non smoker. Cardiovascular: Hypertension requiring meds. Denies CAD, chest pain, palpitations or syncope. GI: No history of GI symptoms or problems. No history of esophageal varices, recent ascites, or ETOH greater than 2 drinks per day. : No history of UTI in past 6 weeks. No history of renal failure. Not currently on or requiring dialysis. No history of symptoms or problems. 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 Endocrine: No history of diabetes. Has not taken steroids within the past 30 days. No history of endocrinological symptoms or problems. Hematology: No history of bleeding or clotting disorder. No history of hematological symptoms or problems. Oncology: DCIS 17 years RIGHT breast took tamoxifen x5 years. Psych: No history of psychiatric symptoms or problems. Skin: Negative for lesions, rash, and itching. Rosacea taking doxycycline PHYSICAL EXAM VITALS: BP 118/72 Pulse 64 Ht 5' 7.52 (1.72m) Wt 187 lb 6.4 oz (85.0kg) SpO2 96% LMP 01/25/2016 BMI 28.90 kg/(m^2). General: Alert and oriented, No acute distress, Healthy appearance Skin: Normal color, no rash, no lesions. HEENT: EOM, pupils equal, round and reactive. Cardiovascular: Normal S1 & S2, no rubs, murmurs or gallops. No JVD. Pulse regular. Lungs: Normal breath sounds, no wheezes or crackles. Abdomen: Soft, non-tender, no rigidity. Extremities: No deformity, no edema or tenderness, no joint swelling or clubbing. Neurological: Normal cognition and motor skills. Gait normal. No weakness or sensory deficit. Pulses: Carotid and radial pulses normal +2. Pedal pulses normal +2. ASSESSMENT Ms. Arreguin is a 62 year old female referred to me for preoperative evaluation. Patient has the following medical comorbidities which might affect the perioperative course: G47.33 CIRILO (obstructive sleep apnea) Comment: uses CPAP nightly E03.9 Acquired hypothyroidism Comment: taking levothyroxine F41.1 Generalized anxiety disorder Comment: managed with sertraline -stable mood and affect F32.A Chronic depression Comment: taking sertraline Z86.000 History of ductal carcinoma in situ (DCIS) of breast Comment: RIGHT breast DCIS diagnosed in 2006 and underwent mastectomy -took tamoxifen Patient's RCRI (Revised Cardiac Risk Index: CAD/CHF/Stroke or TIA/SCr>2/DM on Insulin/High Risk Surgery) score is 0 and is at low risk for major adverse cardiac events in the perioperative period. Diagnostic tests reviewed for today's visit: Most recent labs Viewed in Care Everywhere PLAN/RECOMMENDATIONS CARDIAC: Patient is at optimal cardiac condition for scheduled surgery / procedure. PULMONARY: Patient is at optimal Pulmonary status for scheduled surgery / procedure. Patient is at increased risk for postoperative pulmonary complications. Suggest the following in the post-operative period: Minimize sedation/opioids as patient has CIRILO Patient is optimally prepared for surgery. Patient Instructions: As per patient instructions section. General Preoperative/Medication/Fasting Instructions I have discussed the above recommendations with the patient in detail, in aditya and lay terms, and provided a written summary of instructions as needed. We have discussed that no surgery is without risk, but that the goal of preoperative assessment is to optimize that risk, and that was clearly understood by the patient. I have given ample opportunity for the patient to ask questions, and answered all questions to their stated satisfaction. SIGNATURE: Neha Hamm APRN.CNP PATIENT NAME: Karina Arreguin DATE: October 05, 2023 TIME: 1:23 PM documented in this encounter [facility] 10-05-2023 Nurse Note Surgeon:Dr Chadwick Black Type of surgery:DESTROY LOC LESION RETINA W/ RADIATION IMPLANT Laterality Anesthesia Op Region Right General Eye DESTROY LOC LESION RETINA W/RADIATION IMPLANT REMOVAL Laterality Anesthesia Op Region Right Monitored Anesthesia Care Eye Date of surgery:10/06/23 implant 10/09/23 removal Identified patient by name and ?yes Pacemaker or ICD?no Last pacemaker check: Reviewed medications?no documented in this encounter [facility] 09-28-2023 Note HNO ID: [id number] Author: Katherine Harmon MD Service: Radiation Oncology Author Type: Physician Type: Progress Notes Filed: 09/30/2023 12:33 AM Note Text: KARINA ARREGUIN [id number] 09/28/2023 [facility] Department of Radiation Oncology [facility] RADIATION ONCOLOGY BRACHYTHERAPY TREATMENT PLANNING NOTE For reasons stated in the consult note, Karina Arreguin is a candidate for definitive radiation. Based on review and interpretation of the relevant diagnostic studies together with the exam findings, the patient's (Karina Arreguin) target volume to be treated as well as the critical normal structure(s) were delineated. After participating in the treatment planning process with medical physics, I approved the best plan to deliver my prescribed course of radiation. The target tissue was planned to allow for the best isodose distribution to deliver minimum dose of 85 Gy to the tumor apex. A completed summary of this plan dated 09/28/2023 incorporated herein by reference includes dose, isotope, treatment time, isodose distribution and DVH. Electronically Signed Katherine Harmon M.D. / TAMMI 09/29/2023 11:34 AM [facility] 09-28-2023 History of Presen t illness Narrative KARINA ARREGUIN [id number] 09/28/2023 [facility] Department of Radiation Oncology [facility] RADIATION ONCOLOGY BRACHYTHERAPY TREATMENT PLANNING NOTE For reasons stated in the consult note, Karina Arreguin is a candidate for definitive radiation. Based on review and interpretation of the relevant diagnostic studies together with the exam findings, the patient's (Karina Arreguin) target volume to be treated as well as the critical normal structure(s) were delineated. After participating in the treatment planning process with medical physics, I approved the best plan to deliver my prescribed course of radiation. The target tissue was planned to allow for the best isodose distribution to deliver minimum dose of 85 Gy to the tumor apex. A completed summary of this plan dated 09/28/2023 incorporated herein by reference includes dose, isotope, treatment time, isodose distribution and DVH. Electronically Signed Katherine Harmon M.D. / TAMMI 09/29/2023 11:34 AM documented in this encounter [facility] 09-04-2023 Miscellaneous Notes Phoned pt to schedule plaque with Dr. Chadwick Black. No answer. LVM to call me back on cell. documented in this encounter [facility] 08-29-2023 Note HNO ID: [id number] Author: Chadwick Black MD Service: ? Author Type: Physician Type: Progress Notes Filed: 08/30/2023 11:27 AM Note Text: New patient. She is referred by Dr. Lou Goncalves for evaluation of choroidal nevus. 2 months ago, started to notice some distortion and blurriness with grayish hue with her right eye. She has been following her for a choroidal nevus, which she noticed that it increased in size and was associated with SRF. 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 Discussed plaque radiotherapy vs TTT. Patient agreed with plaque therapy. Discussed poor vision potential due to macular location Discussed radiation retinopathy and optic neuropathy Risks, benefits, alternatives and personnel discussed with patient who consents to proceed. Recommended against diagnostic/ Prognostic FNAB due to small tumor and macular location I have confirmed and edited as necessary the relevant ophthalmic history, ROS, and the neuro exam findings as obtained by others. I have seen and examined this patient. I have discussed the case and the management of this patient's care with the Resident/Fellow, if applicable. I also have reviewed and agree with the assessment and plan as stated above and agree with all of its relevant components. Chadwick Black MD August 30, 2023 11:23 AM [facility] 08-21-2023 Miscellaneous Notes Phoned pt. Scheduled her for 09/12 at 8:30am with Dr. Chadwick Black for consult. documented in this encounter [facility] documented as of this encounter (statuses as of 08/22/2023) [facility] History of Past illness Narrative* Problem Noted Date Diagnosed Date Resolved Date Screening for colon cancer 04/08/2016 0 04/08/2016 BREAST CANCER UPPER OUTER (Right) 07/10/2006 07/25/2006 Overview: 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 BREAST CANCER UPPER INNER (right) 05/19/2006 06/14/2006 Abnormal mammogram, unspecified 04/07/2006 07/25/2006 documented as of this encounter (statuses as of 09/04/2023) [facility] History of Past illness Narrative* Problem Noted Date Diagnosed Date Resolved Date Screening for colon cancer 04/08/2016 0 04/08/2016 BREAST CANCER UPPER OUTER (Right) 07/10/2006 07/25/2006 Overview: 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 BREAST CANCER UPPER INNER (right) 05/19/2006 06/14/2006 Abnormal mammogram, unspecified 04/07/2006 07/25/2006 documented as of this encounter (statuses as of 09/05/2023) [facility] History of Past illness Narrative* Problem Noted Date Diagnosed Date Resolved Date Screening for colon cancer 04/08/2016 0 04/08/2016 BREAST CANCER UPPER OUTER (Right) 07/10/2006 07/25/2006 Overview: 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 BREAST CANCER UPPER INNER (right) 05/19/2006 06/14/2006 Abnormal mammogram, unspecified 04/07/2006 07/25/2006 documented as of this encounter (statuses as of 09/30/2023) [facility] History of Past illness Narrative* Problem Noted Date Diagnosed Date Resolved Date Screening for colon cancer 04/08/2016 0 04/08/2016 BREAST CANCER UPPER OUTER (Right) 07/10/2006 07/25/2006 Overview: 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 BREAST CANCER UPPER INNER (right) 05/19/2006 06/14/2006 Abnormal mammogram, unspecified 04/07/2006 07/25/2006 documented as of this encounter (statuses as of 10/06/2023) [facility] History of Past illness Narrative* Problem Noted Date Diagnosed Date Resolved Date Screening for colon cancer 04/08/2016 0 04/08/2016 BREAST CANCER UPPER OUTER (Right) 07/10/2006 07/25/2006 Overview: 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 BREAST CANCER UPPER INNER (right) 05/19/2006 06/14/2006 Abnormal mammogram, unspecified 04/07/2006 07/25/2006 documented as of this encounter (statuses as of 10/06/2023) [facility] History of Past illness Narrative* Problem Noted Date Diagnosed Date Resolved Date Screening for colon cancer 04/08/2016 0 04/08/2016 BREAST CANCER UPPER OUTER (Right) 07/10/2006 07/25/2006 Overview: 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 BREAST CANCER UPPER INNER (right) 05/19/2006 06/14/2006 Abnormal mammogram, unspecified 04/07/2006 07/25/2006 documented as of this encounter (statuses as of 10/06/2023) [facility] History of Past illness Narrative* Problem Noted Date Diagnosed Date Resolved Date Screening for colon cancer 04/08/2016 0 04/08/2016 BREAST CANCER UPPER OUTER (Right) 07/10/2006 07/25/2006 Overview: 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 BREAST CANCER UPPER INNER (right) 05/19/2006 06/14/2006 Abnormal mammogram, unspecified 04/07/2006 07/25/2006 documented as of this encounter (statuses as of 10/06/2023) [facility] History of Past illness Narrative* Problem Noted Date Diagnosed Date Resolved Date Screening for colon cancer 04/08/2016 0 04/08/2016 BREAST CANCER UPPER OUTER (Right) 07/10/2006 07/25/2006 Overview: 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 BREAST CANCER UPPER INNER (right) 05/19/2006 06/14/2006 Abnormal mammogram, unspecified 04/07/2006 07/25/2006 documented as of this encounter (statuses as of 10/07/2023) [facility] History of Past illness Narrative* Problem Noted Date Diagnosed Date Resolved Date Screening for colon cancer 04/08/2016 0 04/08/2016 BREAST CANCER UPPER OUTER (Right) 07/10/2006 07/25/2006 Overview: 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 BREAST CANCER UPPER INNER (right) 05/19/2006 06/14/2006 Abnormal mammogram, unspecified 04/07/2006 07/25/2006 documented as of this encounter (statuses as of 10/08/2023) [facility] History of Past illness Narrative* Problem Noted Date Diagnosed Date Resolved Date Screening for colon cancer 04/08/2016 0 04/08/2016 BREAST CANCER UPPER OUTER (Right) 07/10/2006 07/25/2006 Overview: 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 BREAST CANCER UPPER INNER (right) 05/19/2006 06/14/2006 Abnormal mammogram, unspecified 04/07/2006 07/25/2006 documented as of this encounter (statuses as of 10/10/2023) [facility] History of Past illness Narrative* Problem Noted Date Diagnosed Date Resolved Date Screening for colon cancer 04/08/2016 0 04/08/2016 BREAST CANCER UPPER OUTER (Right) 07/10/2006 07/25/2006 Overview: 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 BREAST CANCER UPPER INNER (right) 05/19/2006 06/14/2006 Abnormal mammogram, unspecified 04/07/2006 07/25/2006 documented as of this encounter (statuses as of 10/12/2023) [facility] History of Past illness Narrative* Problem Noted Date Diagnosed Date Resolved Date Screening for colon cancer 04/08/2016 0 04/08/2016 BREAST CANCER UPPER OUTER (Right) 07/10/2006 07/25/2006 Overview: 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 BREAST CANCER UPPER INNER (right) 05/19/2006 06/14/2006 Abnormal mammogram, unspecified 04/07/2006 07/25/2006 documented as of this encounter (statuses as of 10/24/2023) [facility] of Past illness Narrative* Problem Noted Date Diagnosed Date Resolved Date Screening for colon cancer 04/08/2016 0 04/08/2016 BREAST CANCER UPPER OUTER (Right) 07/10/2006 07/25/2006 Overview: 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 BREAST CANCER UPPER INNER (right) 05/19/2006 06/14/2006 Abnormal mammogram, unspecified 04/07/2006 07/25/2006 documented as of this encounter (statuses as of 10/27/2023) [facility] Diagnosis 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 [facility] Diagnosis Pre-operative examination- Primary Preoperative examination, unspecified 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 CIRILO (obstructive sleep apnea) Obstructive sleep apnea (adult) (pediatric) Acquired hypothyroidism Unspecified hypothyroidism Generalized anxiety disorder Chronic depression Depressive disorder, not elsewhere classified 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 [facility] Diagnosis 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 [facility] 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 [facility] Choroidal malignant melanoma, right (HCC)- Primary Lesion of liver Other specified disorders of liver [facility] Choroidal malignant melanoma, right (HCC)- Primary Liver lesion Other specified disorders of liver [facility] Diagnosis 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 documented in this encounter [facility] for referral (narrative)* Diagnostic Procedure Only (Routine) - Closed Specialty Diagnoses / Procedures Referred By Contac t Referred To Contact CT IMAGING Diagnoses Choroid melanoma of right eye (HCC) Procedures CT CHEST W IVCON DIAGNOSTIC COMPUTED TOMOGRAPHY THORAX W/CONTRAST Self Lou Goncalves MD [address] [place] [address] Referral ID Status Reason Start Date Expiration Date V isits Requested Visits Authorized [id number] Closed Auto-Generate d Referral 10/05/2023 11/12/2023 1 1 * Diagnostic Procedure Only (Routine) - Closed Specialty Diagnoses / Procedures Referred By Contac t Referred To Contact CT IMAGING Diagnoses Choroid melanoma of right eye (HCC) Procedures CT ABD/PEL W IVCON CT ABD & PELVIS W/CONTRAST Self Lou Goncalves MD [address] [place] [address] Referral ID Status Reason Start Date Expiration Date V isits Requested Visits Authorized [id number] Closed Auto-Generate d Referral 09/13/2023 11/12/2023 1 1 [facility] for visit Narrative* Diagnostic Procedure Only (Routine) - Closed Specialty Diagnoses / Procedures Referred By Contac t Referred To Contact CT IMAGING Diagnoses Choroid melanoma of right eye (HCC) Procedures CT CHEST W IVCON DIAGNOSTIC COMPUTED TOMOGRAPHY THORAX W/CONTRAST Self Lou Goncalves MD [address] [place] [address] Referral ID Status Reason Start Date Expiration Date V isits Requested Visits Authorized [id number] Closed Auto-Generate d Referral 10/05/2023 11/12/2023 1 1 [facility] Summary Purpose Family History No Family History Records FoundNo Family History Records FoundNo Family History Records Found Advance Directives No Advanced Directives Records FoundNo Advanced Directives Records FoundNo Advanced Directives Records Found Reason for Referral Specialty Diagnoses / Procedures Referred By Contac t Referred To Contact MR IMAGING Diagnoses Choroidal malignant melanoma, right (HCC) Lesion of liver Procedures MRI LIVER WO/W IVCON MRI ABDOMEN W/O & W/CONTRAST MATERIAL Concha Anaya APRN.CNP [id number] [facility] [place] [address] Referral ID Status Reason Start Date Expiration Date Visits Requested Visits Authorized [id number] Pending Review Auto-Generat ed Referral 3 2024 1 1 Specialty Diagnoses / Procedures Referred By Contac t Referred To Contact MR IMAGING Diagnoses Choroidal malignant melanoma, right (HCC) Liver lesion Procedures MRI LIVER WO/W IVCON MRI ABDOMEN W/O & W/CONTRAST MATERIAL Chadwick Black MD [address] [place] [address] [facility] [place] [address] Referral ID Status Reason Start Date Expiration Date Visits Requested Visits Authorized [id number] Pending Review Auto-Generat ed Referral 3 11/22/2024 1 1 Additional Source Comments Source Comments (unrecognize d section and content) In the event this informatio n is protected by the Federal Confidentiality of Alcohol and Drug Abuse Patient Records regulations: The Federal rules restrict any use of the information to criminally investigate or prosecute any alcohol or drug abuse patient.[facility] the event this information is protected by the Federal Confidentiality of Alcohol and Drug Abuse Patient Records regulations: The Federal rules restrict any use of the information to criminally investigate or prosecute any alcohol or drug abuse patient.[facility] the event this information is protected by the Federal Confidentiality of Alcohol and Drug Abuse Patient Records regulations: The Federal rules restrict any use of the information to criminally investigate or prosecute any alcohol or drug abuse patient.[facility] the event this information is protected by the Federal Confidentiality of Alcohol and Drug Abuse Patient Records regulations: The Federal rules restrict any use of the information to criminally investigate or prosecute any alcohol or drug abuse patient.[facility] the event this information is protected by the Federal Confidentiality of Alcohol and Drug Abuse Patient Records regulations: The Federal rules restrict any use of the information to criminally investigate or prosecute any alcohol or drug abuse patient.[facility] the event this information is protected by the Federal Confidentiality of Alcohol and Drug Abuse Patient Records regulations: The Federal rules restrict any use of the information to criminally investigate or prosecute any alcohol or drug abuse patient.[facility] the event this information is protected by the Federal Confidentiality of Alcohol and Drug Abuse Patient Records regulations: The Federal rules restrict any use of the information to criminally investigate or prosecute any alcohol or drug abuse patient.[facility] the event this information is protected by the Federal Confidentiality of Alcohol and Drug Abuse Patient Records regulations: The Federal rules restrict any use of the information to criminally investigate or prosecute any alcohol or drug abuse patient.[facility] the event this information is protected by the Federal Confidentiality of Alcohol and Drug Abuse Patient Records regulations: The Federal rules restrict any use of the information to criminally investigate or prosecute any alcohol or drug abuse patient.[facility] the event this information is protected by the Federal Confidentiality of Alcohol and Drug Abuse Patient Records regulations: The Federal rules restrict any use of the information to criminally investigate or prosecute any alcohol or drug abuse patient.[facility] the event this information is protected by the Federal Confidentiality of Alcohol and Drug Abuse Patient Records regulations: The Federal rules restrict any use of the information to criminally investigate or prosecute any alcohol or drug abuse patient.[facility] the event this information is protected by the Federal Confidentiality of Alcohol and Drug Abuse Patient Records regulations: The Federal rules restrict any use of the information to criminally investigate or prosecute any alcohol or drug abuse patient.[facility] the event this information is protected by the Federal Confidentiality of Alcohol and Drug Abuse Patient Records regulations: The Federal rules restrict any use of the information to criminally investigate or prosecute any alcohol or drug abuse patient.[facility] the event this information is protected by the Federal Confidentiality of Alcohol and Drug Abuse Patient Records regulations: The Federal rules restrict any use of the information to criminally investigate or prosecute any alcohol or drug abuse patient.[facility] Reason for Visit (unrecogniz ed section and content) Reason Comments Pre-Op Exam Reason Comments Consult Specialty Diagnoses / Procedures Referred By Contac t Referred To Contact Radiation Oncology Diagnoses Choroid melanoma of right eye (HCC) Procedures RAD/ONC CONSULT OFFICE/OUTPATIENT [facility] 60-74 MINUTES Mychart [address] [place] [address] Referral ID Status Reason Start Date Expiration Date Visits Requested Visits Authorized [id number] Pending Review PCP Requested Referral 09/04/2023 09/03/2024 [address] Specialty Diagnoses / Procedures Referred By Contac t Referred To Contact CT IMAGING Diagnoses Choroid melanoma of right eye (HCC) Procedures CT ABD/PEL W IVCON CT ABD & PELVIS W/CONTRAST Self Lou Goncalves MD [address] [place] [address] Referral ID Status Reason Start Date Expiration Date V isits Requested Visits Authorized [id number] Closed Auto-Generate d Referral 09/13/2023 11/12/2023 1 1 Reason Comments chorodal melanoma of the right eye Reason Comments Post-op (Ophthalmology) Right Eye Reason Comments Cancer Survivorship INFORMATION SOURCE (unrecogn ized section and content) DATE CREATED AUTHOR AUTHOR'S ORGANIZ ATION 12/05/2023 [facility] DATE CREATED AUTHOR AUTHOR'S ORGANIZ ATION 12/05/2023 [facility] Care Teams (unrecognized sec tion and content) Service Cleaner Relationship Specialty Start Date End Date Kristal Fregoso MD [address] [address] PCP - General Family Medicine 10/18/23 Service Cleaner Relationship Specialty Start Date End Date Kristal Fregoso MD [address] [place] [address] PCP - General Family Medicine 09/13/23 Service Cleaner Relationship Specialty Start Date End Date Kristal Fregoso MD [address] [place] [address] PCP - General Family Medicine 09/13/23 Service Cleaner Relationship Specialty Start Date End Date Kristal Fregoso MD [address] [place] [address] PCP - General Family Medicine 09/13/23 Service Cleaner Relationship Specialty Start Date End Date Kristal Fregoso MD [address] [place] [address] PCP - General Family Medicine 09/13/23 Service Cleaner Relationship Specialty Start Date End Date Kristal Fregoso MD [address] [place] [address] PCP - General Family Medicine 09/13/23 Service Cleaner Relationship Specialty Start Date End Date Kristal Fregoso MD [address] [place] [address] PCP - General Family Medicine 09/13/23 Service Cleaner Relationship Specialty Start Date End Date Kristal Fregoso MD [address] [place] [address] PCP - General Family Medicine 09/13/23 FOR RECORDS PERTAINING TO PATIENTS WHO ARE OR HAVE BEEN ENROLLED IN A CHEMICAL DEPENDENCY/SUBSTANCEABUSE PROGRAM, SOME INFORMATION MAY BE OMITTED. This clinical summary was aggregated from multiple sources. Caution should be exercised in using it in the provision of clinical care. This summary normalizes information from multiple sources, and as a consequence, information in this document may materially change the coding, format and clinical context of patient data. In addition, data may be omitted in some cases. CLINICAL DECISIONS SHOULD BE BASED ON THE PRIMARY CLINICAL RECORDS. [employer] [facility]. provides no warranty or guarantee of the accuracy or completeness of information in this document.
== END | disposition home or self-care (01) ==
LOC: OPBI 09:34
PROVIDERS: PCP Family Medicine; Referring Provider Family Medicine; Visit Provider Family Medicine
DX: Z12.31 Encounter for screening mammogram for malignant neoplasm of breast (principal); Z85.3 Personal history of malignant neoplasm of breast; Z80.3 Family history of malignant neoplasm of breast; Z90.11 Acquired absence of right breast and nipple
CPT/HCPCS: 77063; 77067

== ENCOUNTER → 2023-12-29 | Outpatient (CLI) | payer OTHER, SELFPAY ==
[2023-12-29 10:14] LABS: Absolute Lymphocyte Count 1.78 X10^3/uL (0.83-4.51); Absolute Neutrophil Count 2.5 X10^3/uL (2.0-7.7); Basophil# 0.05 X10^3/uL; Eosinophil# 0.17 X10^3/uL; Eosinophils% 3.4 % (0-5); Hematocrit 41.3 % (37-47); Hemoglobin 13.2 g/dL (12.0-15.0); Lymphocyte # 1.78 X10^3/ul (0.83-4.51); Lymphocyte % 35.7 % (19-41); Mean Corpuscular Hgb 27.6 pg (27.0-32.0); Mean Corpuscular Volume 86.4 fL (81-99); Mean Platelet Vol. 9.5 fl (6.2-12.0); Monocyte# 0.51 X10^3/uL; Monocyte% 10.2 % (0-10); NRBC Flagged by Analyzer 0 % (0-5); Neutrophil # 2.46 X10^3/uL (2.7-7.7); Neutrophil % 49.5 % (47-70); Platelet Count 316 K/mm3 (150-450); RBC Distribution Width CV 13.1 % (11.6-14.6); RBC Distribution Width SD 41.1 fl (35.1-43.9); Red Blood Count 4.78 M/mm3 (4.2-5.4)
[2023-12-29 10:37] LABS: AST(SGOT) 16 U/L (15-37); Alanine Aminotransfer ALT/SGPT 22 U/L (13-56); Albumin, Serum 3.9 g/dL (3.2-5.0); Alkaline Phosphatase 90 U/L (45-117); Anion Gap 4 (5-15); BUN 18 mg/dL (7-18); BUN/Creat Ratio 19.2 RATIO (10-20); Chloride 108 mmol/L (98-107); Cholesterol 238 mg/dL (200); Creatinine, Serum 0.94 mg/dL (0.55-1.02); EST Glomerular Filtration Rate 64 mL/min (>60); Est Glom Filt Rate - Afr Amer 78 mL/min (>60); Globulin 3.8 g/dL (2.2-4.2); Glucose 99 mg/dL (74-106); High Density Lipoprotein 79 mg/dL; Potassium 3.9 mmol/L (3.5-5.1); Protein, Total 7.7 g/dL (6.4-8.2); Sodium Level 137 mmol/L (136-145); Thyroid Stim Hormone (TSH) 1.79 uIU/mL (0.358-3.74); Triglycerides 120 mg/dL; Very Low Density Lipoprotein 24 mg/dL (5-40)
== END | disposition home or self-care (01) ==
LOC: MTLAB 08:27
PROVIDERS: PCP Family Medicine; Visit Provider Family Medicine
DX: Z00.00 Encounter for general adult medical examination without abnormal findings (principal); C50.919 Malignant neoplasm of unspecified site of unspecified female breast; E03.9 Hypothyroidism, unspecified
CPT/HCPCS: 36415; 80053; 80061; 84443; 85025

== ENCOUNTER → 2024-10-28 | Outpatient (CLI) | payer OTHER, SELFPAY | END | disposition home or self-care (01) | PROVIDERS: PCP Family Medicine; Referring Provider Family Medicine; Visit Provider Family Medicine | DX: R91.8 Other nonspecific abnormal finding of lung field (principal) | CPT/HCPCS: 71271 ==

== ENCOUNTER → 2024-11-11 | Outpatient (CLI) | payer OTHER, SELFPAY ==
[2024-11-11 10:04] LABS: Absolute Lymphocyte Count 1.95 X10^3/uL (0.83-4.51); Absolute Neutrophil Count 3.4 X10^3/uL (2.0-7.7); Basophil# 0.05 X10^3/uL; Basophil% 0.8 % (0-1); Eosinophil# 0.26 X10^3/uL; Eosinophils% 4.1 % (0-5); Hematocrit 42.2 % (37-47); Hemoglobin 13.6 g/dL (12.0-15.0); Lymphocyte # 1.95 X10^3/ul (0.83-4.51); Lymphocyte % 31.1 % (19-41); Mean Corp Hgb Conc 32.2 g/dL (32-36); Mean Corpuscular Hgb 27.6 pg (27.0-32.0); Mean Corpuscular Volume 85.8 fL (81-99); Mean Platelet Vol. 9.7 fl (6.2-12.0); Monocyte% 9.6 % (0-10); NRBC Flagged by Analyzer 0 % (0-5); Neutrophil % 54.1 % (47-70); Platelet Count 336 K/mm3 (150-450); RBC Distribution Width CV 13.2 % (11.6-14.6); RBC Distribution Width SD 41.6 fl (35.1-43.9); Red Blood Count 4.92 M/mm3 (4.2-5.4); White Blood Count 6.3 K/mm3 (4.4-11.0)
[2024-11-11 10:59] LABS: ALB/GLOB Ratio 1.1 RATIO (0.9-2.4); AST(SGOT) 20 U/L (15-37); Alanine Aminotransfer ALT/SGPT 20 U/L (13-56); Alkaline Phosphatase 75 U/L (45-117); Anion Gap 8 (5-15); BUN 17 mg/dL (7-18); BUN/Creat Ratio 17.6 RATIO (10-20); Calcium,Total 9.3 mg/dL (8.5-10.1); Chloride 109 mmol/L (98-107); Cholesterol 208 mg/dL (200); Creatinine, Serum 0.97 mg/dL (0.55-1.02); EST Glomerular Filtration Rate 62 mL/min (>60); Est Glom Filt Rate - Afr Amer 75 mL/min (>60); Globulin 3.6 g/dL (2.2-4.2); Glucose 97 mg/dL (74-106); High Density Lipoprotein 91 mg/dL; Potassium 3.8 mmol/L (3.5-5.1); Protein, Total 7.6 g/dL (6.4-8.2); Sodium Level 139 mmol/L (136-145); Triglycerides 68 mg/dL; Very Low Density Lipoprotein 14 mg/dL (5-40)
== END | disposition home or self-care (01) ==
PROVIDERS: PCP Family Medicine; Referring Provider Family Medicine; Visit Provider Family Medicine
DX: Z00.00 Encounter for general adult medical examination without abnormal findings (principal); E03.9 Hypothyroidism, unspecified; F32.A Depression, unspecified; Z82.49 Family history of ischemic heart disease and other diseases of the circulatory system
CPT/HCPCS: 36415; 80053; 80061; 84443; 85025

== ENCOUNTER → 2024-12-23 | Outpatient (CLI) | payer OTHER, SELFPAY ==
--- NOTE | 2024-12-23 14:59 | BI_ITS ---
MAMMOGRAPHY - UNILATERAL SCREENING: LEFT BREAST REASON FOR EXAM: Female, 64 years old. Routine annual screening examination (unilateral). PERTINENT HISTORY: Personal history of breast cancer. Prior right mastectomy. TECHNIQUE: Digital unilateral breast miranda (3D mammographic acquisition) in the CC and MLO projections. 2-D mediolateral oblique (MLO) and craniocaudad (CC) views of both breasts were obtained. CAD: Full Field Digital Mammography with Computer Added Detection was performed. COMPARISON: Comparison is made with prior study dated December 22, 2023 and December 14, 2022. FINDINGS: Breast Composition: The breasts are heterogeneously dense, which may obscure small masses. There are no dominant masses or suspicious calcifications. Once again, 2 adjacent tissue clip markers are seen in the retroareolar region of the left breast. Stable 1 cm well-defined nodule in the retroareolar region of the left breast. No other significant abnormalities are identified. There has been no significant change since the prior study. BI/SCREEN MAMM (CAD) W/MIRANDA UNI L IMPRESSION: Stable unilateral screening mammogram. Yearly follow-up mammogram recommended. (A) ASSESSMENT CATEGORY: BIRADS Category 2: Benign. A letter regarding these results will be sent to the patient by the facility within 30 days. Approximately 10% of breast cancers are not detected by mammography. A normal mammogram should not delay biopsy of a clinically suspicious abnormality. [id number] Electronically Signed: Nestor Allison MD at 12:48 EST ,
== END | disposition home or self-care (01) ==
LOC: OPBI 14:58
PROVIDERS: PCP Family Medicine; Referring Provider Family Medicine; Visit Provider Family Medicine
DX: Z12.31 Encounter for screening mammogram for malignant neoplasm of breast (principal); Z85.3 Personal history of malignant neoplasm of breast; Z90.11 Acquired absence of right breast and nipple
CPT/HCPCS: 77063; 77067

== ENCOUNTER → 2025-03-11 | Outpatient (CLI) | payer OTHER, SELFPAY | END | disposition home or self-care (01) | LOC: BFHLAB 11:47 | PROVIDERS: PCP Family Medicine; Visit Provider Family Medicine | DX: E03.9 Hypothyroidism, unspecified (principal) | CPT/HCPCS: 36415; 84443 ==